=== PATIENT | male | born 1985 | race Hispanic/Latino ===

== ENCOUNTER 2018-03-29 15:18 | Emergency (ER) | payer SELFPAY ==
--- NOTE | 2018-03-29 17:26 | ER ---
Nurse's Notes [facility] Name: Pepe Chen Age: 32 yrs Sex: Male : 1985 Arrival Date: 03/29/2018 Time: 15:22 Bed 10 Private MD: Diagnosis: Encounter for screening, unspecified Presentation: 03/29 15:51 Presenting complaint: Patient states: "my left wrist has been hurting for months". aa5 Denies known injury. Pt states "I had left wrist surgery years ago". Transition of care: patient was not received from another setting of care. Onset of symptoms was 2017. Risk Assessment: Do you want to hurt yourself or someone else? Patient reports no desire to harm self or others. Initial Sepsis Screen: Does the patient meet any 2 criteria? No. Patient's initial sepsis screen is negative. Does the patient have a suspected source of infection? No. Patient's initial sepsis screen is negative. Care prior to arrival: None. 15:51 Method Of Arrival: Ambulatory aa 15:51 Acuity: RIMA 4 aa5 Historical: - Allergies: 15:53 No Known Allergies; aa5 - PMHx: 15:53 None; aa5 - PSHx: 15:53 Appendectomy; L wrist; aa5 - Immunization history:: Adult Immunizations unknown. - Social history:: Smoking status: Patient uses tobacco products, 3 cigarettes a day . - Ebola Screening: : No symptoms or risks identified at this time. Screenin:25 Abuse screen: Denies threats or abuse. Denies injuries from another. Nutritional aj screening: No deficits noted. Tuberculosis screening: No symptoms or risk factors identified. Fall Risk None identified. Vital Signs: 15:53 BP 129 / 71; Pulse 102; Resp 18 S; Temp 97.8(TE); Pulse Ox 99% on R/A; Weight 70.31 kg aa5 (R); Height 5 ft. 4 in. (162.56 cm) (R); Pain 8/10; 15:53 Body Mass Index 26.61 (70.31 kg, 162.56 cm) aa5 ED Course: 15:22 Patient arrived in ED. mr 15:52 Triage completed. aa5 15:52 Arm band placed on. aa 17:11 Ranjit Morgan MD is Attending Physician. 17:25 Sondra Torres, RN is Primary Nurse. aj 17:25 Patient has correct armband on for positive identification. aj 17:25 No provider procedures requiring assistance completed. Patient did not have IV access aj during this emergency room visit. Administered Medications: No medications were administered Outcome: 17:25 Discharge ordered by . gs 17:25 Medical screen evaluation completed per provider. Patient declined treatment. aj 17:25 Condition: good 17:25 Following a medical screening exam, the patient was provided information regarding alternative care sites and resources available per registration personnel. 17:26 Patient left the ED. aj Signatures: Sondra Torres, RN RN Lizbeth LivingstonderJazmine lambert, RN RN aa5 Ranjit Morgan MD MD
--- NOTE | 2018-03-29 17:26 | EDPHYS ---
Physician Documentation [facility] Name: Pepe Chen Age: 32 yrs Sex: Male : 1985 Arrival Date: 03/29/2018 Time: 15:22 Bed 10 Private MD: ED Physician Ranjit Morgan HPI: 03/29 17:23 This 32 yrs old Male presents to ER via Ambulatory with complaints of Wrist gs Pain. 17:23 The patient or guardian reports pain. The complaints affect the left wrist diffusely. gs Onset: The symptoms/episode began/occurred 4 month(s) ago. Modifying factors: The symptoms are alleviated by nothing, the symptoms are aggravated by movement. Associated signs and symptoms: Pertinent negatives: cyanosis distally, decreased sensation distally, fever, numbness distally. Compartment Syndrome negative for numbness, tingling. The patient has experienced similar episodes in the past, several times. The patient has not recently seen a physician. Historical: - Allergies: 15:53 No Known Allergies; aa5 - PMHx: 15:53 None; aa5 - PSHx: 15:53 Appendectomy; L wrist; aa5 - Immunization history:: Adult Immunizations unknown. - Social history:: Smoking status: Patient uses tobacco products, 3 cigarettes a day . - Ebola Screening: : No symptoms or risks identified at this time. ROS: 17:23 All other systems are negative. gs Exam: 17:23 Head/Face: Normocephalic, atraumatic. Cardiovascular: Regular rate and rhythm with a gs normal S1 and S2. No gallops, murmurs, or rubs. Normal PMI, no JVD. No pulse deficits. Respiratory: Lungs have equal breath sounds bilaterally, clear to auscultation and percussion. No rales, rhonchi or wheezes noted. No increased work of breathing, no retractions or nasal flaring. Abdomen/GI: Soft, non-tender, with normal bowel sounds. No distension or tympany. No guarding or rebound. No evidence of tenderness throughout. Skin: Warm, dry with normal turgor. Normal color with no rashes, no lesions, and no evidence of cellulitis. Neuro: Awake and alert, GCS 15, oriented to person, place, time, and situation. Cranial nerves II-XII grossly intact. Motor strength 5/5 in all extremities. Sensory grossly intact. Cerebellar exam normal. Normal gait. 17:23 Musculoskeletal/extremity: Circulation is intact in all extremities. Pulses: are normal with no appreciated deficits, Sensation intact. Compartment Syndrome exam of affected extremity: is normal. Joints: the left wrist displays tenderness, no swelling or warmth. Vital Signs: 15:53 BP 129 / 71; Pulse 102; Resp 18 S; Temp 97.8(TE); Pulse Ox 99% on R/A; Weight 70.31 kg aa5 (R); Height 5 ft. 4 in. (162.56 cm) (R); Pain 8/10; 15:53 Body Mass Index 26.61 (70.31 kg, 162.56 cm) aa5 MDM: 17:17 Patient medically screened. 17:23 Differential diagnosis: tendonitis. Data reviewed: vital signs, nurses notes. gs Administered Medications: No medications were administered Disposition: 03/29/18 17:25 Discharged to Home. Impression: Encounter for screening, unspecified. - Condition is Stable. - Medication Reconciliation Form, Thank You Letter, Antibiotic Education, Prescription Opioid Use form. - Follow up: Private Physician; When: 2 - 3 days; Reason: Re-evaluation by your physician. Signatures: Sondra Torres RN RN Jazmine Taveras RN RN aa5 Ranjit Morgan MD MD Corrections: (The following items were deleted from the chart) 17:26 17:25 03/29/2018 17:25 Discharged to Home. Impression: Encounter for screening, aj unspecified. Condition is Stable. Forms are Medication Reconciliation Form, Thank You Letter, Antibiotic Education, Prescription Opioid Use. Follow up: Private Physician; When: 2 - 3 days; Reason: Re-evaluation by your physician. gs
== END 2018-03-29 17:26 | disposition home or self-care (01) ==
LOC: ER 15:18
DX: M25.532 Pain in left wrist (principal); Z13.9 Encounter for screening, unspecified; F17.210 Nicotine dependence, cigarettes, uncomplicated; F17.220 Nicotine dependence, chewing tobacco, uncomplicated
CPT/HCPCS: 99281

== ENCOUNTER 2020-12-09 10:23 | Emergency (ER) | payer SELFPAY ==
--- OUTSIDE RECORDS SUMMARY | 2020-12-09 10:26 | XMS REPORT | Continuity of Care Document ---
:1985 Author Organization [facility] t Address [address] [place] [address] Care Team Providers Name Role Phone ROB Attending Clinician Unavailable Problems Condition Condition Condition Status Onset Resolution Last Treating Co mments Source Name Details Category Date Date Treatment Clinician Date History of History of Problem Resolve [facility] staphyloco staphyloco d [facility] y [facility]cal [facility] [place] infection infection Phys ici ans History of History of Problem Resolve [facility] back pain back pain d [facility] [place] [facility] ans Allergies, Adverse Reactions, Alerts This patient has no known allergies or adverse reactions. Family History Family Member Diagnosis Comments Start Date Stop Date Source Unknown Family Family history of Family History [facility] Member diabetes mellitus [place] P hysicians Unknown Family Family history of Family History [facility] Member Heart trouble [place] Phys[facility] cians Unknown Family Family history of Family History [facility] hypertension [place] [facility] ians Medications Ordered Filled Start Stop Current Ordering Indication Dosage Frequency Signature Comments Components Source Medication Medication Date Date Medication? Clinician (SIG) Name Name Tylenol Tylenol Yes [facility] TABS TABS [facility] [place] [facility] Naproxen Naproxen Yes [facility] TABS TABS [facility] [place] [facility] Procedures Procedure Date / Time Performing Clinician Source Performed History of Cyst [facility] [place] excision Physicians History of [place] [facility] extraction Physicians History of Appendectomy [facility] [place] [facility] Encounters Start End Encounter Admission Attending Care Care Encounter Source Date/Time Date/Time Type Type Clinicians Facility Department ID 2020-09-20 2020-09-20 [facility] [id number] Univers 15:00:00 15:00:00 raúl DUTTA M.D. at [facility] Sarah RIVAS Medicine Physici M.D. [place] - ans [place] Results Test Description Test Time Test Comments Results Result Sourc e Comments [U] XRAY HAND MIN 2020-09-20 Images [facility] of 3 VWS RIGHT [id number] 15:05:00 acquired, not Daysi s reported on Physicians this accession number.
--- NOTE | 2020-12-09 11:09 | ER ---
Nurse's Notes [facility] Name: Pepe Chen Age: 35 yrs Sex: Male : 1985 Arrival Date: 12/09/2020 Time: 10:24 Bed Waiting Private MD: Diagnosis: Presentation: 12/09 10:31 Chief complaint: Pt's reports confusion, fever, cough that began Thursday. 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 Pt also reports SOB and feeling lightheaded. Pt currently A\\T\\O x 4. Coronavirus screen: cough unrelated to allergies, shortness of breath. Ebola Screen: Patient negative for fever greater than or equal to 101.5 degrees Fahrenheit, and additional compatible Ebola Virus Disease symptoms. Initial Sepsis Screen: Does the patient meet any 2 criteria? No. Patient's initial sepsis screen is negative. Does the patient have a suspected source of infection? No. Patient's initial sepsis screen is negative. Risk Assessment: Do you want to hurt yourself or someone else? Patient reports no desire to harm self or others. Onset of symptoms was 2020. 10:31 Acuity: RIMA 3 aa5 10:31 Method Of Arrival: Ambulatory aa5 Historical: - Allergies: 10:33 No Known Allergies; aa5 - Home Meds: 10:33 None [Active]; aa5 - PMHx: 10:33 None; aa5 - PSHx: 10:33 Appendectomy; L wrist; aa5 - Immunization history:: Adult Immunizations unknown. - Social history:: Smoking status: Patient reports the use of cigarette tobacco products, 2 cigarettes a day . Assessment: 11:07 Reassessment: Pt's states "he is still having chest pain". Informed pt and pt's aa5 that ER is full and charge nurse has been notified of complaints and need for next room available. Pt and notified that approximate wait time is 20 minutes, pt and states they do not want to wait any longer and are leaving. Encouraged to stay and wait a few minutes and pt and declined. . Vital Signs: 10:31 BP 139 / 88; Pulse 105; Resp 18 S; Temp 98.9(O); Pulse Ox 100% on R/A; Weight 74.84 kg aa5 (R); Height 5 ft. 4 in. (162.56 cm) (R); 10:31 Body Mass Index 28.32 (74.84 kg, 162.56 cm) aa5 ED Course: 10:24 Patient arrived in ED. rg4 10:31 Arm band placed on. aa5 10:32 Triage completed. aa5 10:37 EKG completed in triage. Results shown to MD. hb 11:08 Dave Shook MD is Attending Physician. aa5 Administered Medications: No medications were administered Outcome: 11:08 Patient left the ED. aa5 11:08 Eloped from waiting room. aa5 Signatures: Jazmine Barton, RN RN aa5 Staci Powers, RN RN Deborah Beal rg4
[2020-12-09 11:12] VITALS: BP 139/88; TEMP 98.9; O2SAT 100
== END 2020-12-09 11:08 | disposition left against medical advice (07) ==
LOC: ER 10:23
DX: Z53.21 Procedure and treatment not carried out due to patient leaving prior to being seen by health care provider (principal)
CPT/HCPCS: 93005; 99281

== ENCOUNTER 2021-05-03 23:27 | Emergency (ER) | payer SELFPAY ==
--- NOTE | 2021-05-04 00:27 | ER ---
Nurse's Notes [facility] Name: Pepe Chen Age: 35 yrs Sex: Male : 1985 Arrival Date: 05/03/2021 Time: 23:28 Bed 6 Private MD: Diagnosis: Pain in right shoulder Presentation: 05/03 23:33 Chief complaint: Patient states: Right shoulder pain that started about 45 minutes ago. dc2 Coronavirus screen: Vaccine status: Patient reports being unvaccinated. Client denies travel out of the [place] in the last 14 days. Ebola Screen: Patient negative for fever greater than or equal to 101.5 degrees Fahrenheit, and additional compatible Ebola Virus Disease symptoms Patient denies exposure to infectious person. Patient denies travel to an Ebola-affected area in the 21 days before illness onset. No symptoms or risks identified at this time. Initial Sepsis Screen: Does the patient meet any 2 criteria? No. Patient's initial sepsis screen is negative. Does the patient have a suspected source of infection? No. Patient's initial sepsis screen is negative. Risk Assessment: Do you want to hurt yourself or someone else? Patient reports no desire to harm self or others. Onset of symptoms was May 03, 2021 at 22:45. Care prior to arrival: Ice pack to right shoulder. Activity prior to arrival: Resisting arrest. 23:33 Method Of Arrival: EMS: [facility] dc2 23:33 Acuity: RIMA 4 dc2 23:33 Note Presents in handcuffs with [employer]. dc2 Triage Assessment: 23:33 General: Appears in no apparent distress. uncomfortable, obese, well groomed, Behavior dc2 is calm, cooperative. 23:33 Pain: Complains of pain in Right shoulder Pain does not radiate. Pain currently is 9 dc2 out of 10 on a pain scale. Quality of pain is described as throbbing, Pain began suddenly, 1 hour ago. Aggravated by repositioning. Neuro: No deficits noted. Respiratory: No deficits noted. Derm: No deficits noted. No signs and/or symptoms reported regarding the dermatologic system. Musculoskeletal: Capillary refill < 3 seconds, is brisk, fingers. Range of motion: limited in Right shoulder, right arm due to pain Reports pain in Right shoulder. Injury Description: Crush injury sustained to Right shoulder hit concrete while being arrested. Historical: - Allergies: 23:35 No Known Allergies; dc2 - Home Meds: 23:35 None [Active]; dc2 - PMHx: 23:35 None; dc2 - Immunization history:: Adult Immunizations up to date, Client reports having NOT received the Covid vaccine. Last tetanus immunization: unknown. - Social history:: Smoking status: Patient reports the use of cigarette tobacco products, smokes one pack cigarettes per day. Screenin:35 Abuse screen:. Nutritional screening: No deficits noted. Tuberculosis screening: No dc2 symptoms or risk factors identified. Never had TB. Fall Risk None identified. No fall in past 12 months (0 pts). No secondary diagnosis (0 pts). No IV (0 pts). Ambulatory Aid- None/Bed Rest/Nurse Assist (0 pts). Gait- Normal/Bed Rest/Wheelchair (0 pts) Mental Status- Oriented to own ability (0 pts). Total Miller Fall Scale indicates No Risk (0-24 pts). Assessment: 05/04 00:35 General: Appears uncomfortable, Behavior is calm, cooperative. Pain: Complains of pain df1 in right trapezius and right scapular area Pain does not radiate. Neuro: No deficits noted. Cardiovascular: No deficits noted. Respiratory: No deficits noted. GI: No deficits noted. : No deficits noted. EENT: No deficits noted. Derm: No deficits noted. Musculoskeletal: Capillary refill < 3 seconds, Range of motion: limited in right shoulder Reports pain in right trapezius and right scapular area. Vital Signs: 05/03 23:29 BP 157 / 92; Pulse 122; Temp 98.2(O); dh4 05/04 00:34 BP 141 / 90; Pulse 99; Resp 18; Pulse Ox 99% on R/A; Pain 8/10; df1 ED Course: 05/03 23:28 Patient arrived in ED. kb 23:28 [facility]tazar [facility]C [facility] kb 23:29 Ankur Magallanes MD is Attending Physician. kb 23:33 Yvonne Saldana RN is Primary Nurse. dc2 23:33 Arm band placed on right wrist. dc2 23:35 Triage completed. dc2 23:35 Patient has correct armband on for positive identification. Bed in low position. Call dc2 light in reach. Side rails up X 1. Pulse ox on. NIBP on. [place] police with patient. 23:43 X-ray(s) taken. dc2 23:49 Shoulder Right (2 View) XRAY In Process Unspecified. EDVA 05/04 00:34 No provider procedures requiring assistance completed. Patient did not have IV access df1 during this emergency room visit. Administered Medications: 00:33 Drug: Ibuprofen 600 mg Route: PO; df1 Outcome: 00:26 Discharge ordered by MD. kirk 00:37 Discharged to Law Enforcement df1 00:37 Condition: good 00:37 Discharge instructions given to patient, police, Instructed on discharge instructions, follow up and referral plans. 00:37 Patient left the ED. df1 Signatures: Dispatcher [employer] EDVA Julissa Baltazar, RAGINI BARRERAP-Shalom Ac 4 Barbara Coleman df1 Yvonne Saldana RN RN dc2 Corrections: (The following items were deleted from the chart) 05/03 23:37 23:35 PSHx: Unable to Obtain; dc2 dc2 23:37 23:35 PSHx: Stented artery; dc2 dc2
--- NOTE | 2021-05-04 00:27 | EDPHYS ---
Physician Documentation [facility] Name: Pepe Chen Age: 35 yrs Sex: Male : 1985 Arrival Date: 05/03/2021 Time: 23:28 Bed 6 Private MD: ED Physician Ankur Magallanes HPI: 05/04 00:41 This 35 yrs old Male presents to ER via EMS with complaints of shoulder pain. kb 00:41 The patient or guardian complains of pain, that is acute, tenderness. right shoulder. kb Context: The problem was sustained outdoors, resulted from getting arrested and having arms put behind back, The patient experiences decreased range of motion, The patient reports no obvious deformity. Onset: The symptoms/episode began/occurred today. Modifying factors: the symptoms are alleviated by nothing. The symptoms are aggravated by movement. Associated signs and symptoms: The patient has no apparent associated signs or symptoms. Severity of symptoms: At their worst the symptoms were moderate, in the emergency department the symptoms are unchanged. Treatment prior to arrival includes: no previous treatment. The patient has not experienced similar symptoms in the past. The patient has not recently seen a physician. Historical: - Allergies: 05/03 23:35 No Known Allergies; dc2 - Home Meds: 23:35 None [Active]; dc2 - PMHx: 23:35 None; dc2 - Immunization history:: Adult Immunizations up to date, Client reports having NOT received the Covid vaccine. Last tetanus immunization: unknown. - Social history:: Smoking status: Patient reports the use of cigarette tobacco products, smokes one pack cigarettes per day. ROS: 05/04 00:40 Constitutional: Negative for fever, chills, and weight loss. kb MS/extremity: Positive for decreased range of motion, pain, tenderness, of the right shoulder. All other systems are negative. Exam: 00:40 Constitutional: This is a well developed, well nourished patient who is awake, alert, kb and in no acute distress. Head/Face: Normocephalic, atraumatic. ENT: Moist Mucous membranes Respiratory: Respirations even and unlabored. No increased work of breathing, no retractions or nasal flaring. Skin: Warm, dry with normal turgor. Normal color. Neuro: Awake and alert, GCS 15, oriented to person, place, time, and situation. Moves all extremities. Normal gait. Psych: Awake, alert, with orientation to person, place and time. Behavior, mood, and affect are within normal limits. 00:40 Musculoskeletal/extremity: Extremities: grossly normal except: noted in the right shoulder: decreased ROM, pain, tenderness, ROM: limited active range of motion, in the right shoulder, limited active range of motion due to pain, in the right shoulder, Circulation is intact in all extremities. Sensation intact. Vital Signs: 05/03 23:29 BP 157 / 92; Pulse 122; Temp 98.2(O); dh4 05/04 00:34 BP 141 / 90; Pulse 99; Resp 18; Pulse Ox 99% on R/A; Pain 8/10; df1 MDM: 05/03 23:29 Patient medically screened. kb 05/04 00:41 Data reviewed: vital signs, nurses notes. Data interpreted: Pulse oximetry: on room air kb is 99 %. Interpretation: normal. Counseling: I had a detailed discussion with the patient and/or guardian regarding: the historical points, exam findings, and any diagnostic results supporting the discharge/admit diagnosis, radiology results, the need for outpatient follow up, a orthopedic surgeon, to return to the emergency department if symptoms worsen or persist or if there are any questions or concerns that arise at home. 05/03 23:29 Order name: Shoulder Right (2 View) XRAY kb Administered Medications: 00:33 Drug: Ibuprofen 600 mg Route: PO; df1 Disposition: 04:45 Co-signature as Attending Physician, Ankur Magallanes MD. [email or web address] Disposition Summary: 05/04/21 00:26 Discharge Ordered Condition: Stable kb Location: [employer] Enforcement(05/04/21 00:26) kb Diagnosis - Pain in right shoulder kb Followup: kb - With: Emergency Department - When: As needed - Reason: Worsening of condition Followup: kb - With: Private Physician - When: 2 - 3 days - Reason: Recheck today's complaints, Continuance of care, Re-evaluation by your physician Discharge Instructions: - Discharge Summary Sheet kb - Shoulder Pain, [id number] kb Forms: - Medication Reconciliation Form kb - Thank You Letter kb - Antibiotic Education kb - Prescription Opioid Use kb Signatures: Dispatcher [employer] EDJulissa Joy FNP-Yadi ACEVES-Ckb Ankur Magallanes MD MD mh7 Barbara Coleman df1 Yvonne Saldana RN RN dc2 Corrections: (The following items were deleted from the chart) 05/03 23:37 23:35 PSHx: Unable to Obtain; dc2 dc2 23 23:35 PSHx: Stented artery; dc2 dc2 05/04 00:26 00:26 Home kb kb
[2021-05-04] MEDS ORDERED: IBUPROFEN 400 MG TAB ONE (00:55)
[2021-05-04] MEDS ORDERED: IBUPROFEN 200 MG TAB PO ONE (00:55)
[2021-05-04 00:56] VITALS: TEMP 98.2
[2021-05-04 00:57] VITALS: BP 141/90; O2SAT 99
--- NOTE | 2021-05-04 10:46 | RAD REPORT ---
EXAM DESCRIPTION: RAD - Shoulder Right 2 View - 05/03/2021 11:48 pm CLINICAL HISTORY: Right shoulder pain FINDINGS: No fracture or dislocation is seen.
== END 2021-05-04 00:37 ==
LOC: ER 23:27
DX: M25.511 Pain in right shoulder (principal); F17.210 Nicotine dependence, cigarettes, uncomplicated
CPT/HCPCS: 99284

== ENCOUNTER 2024-05-07 15:25 | Emergency (ER) | payer SELFPAY ==
--- OUTSIDE RECORDS SUMMARY | 2024-05-07 15:28 | XMS REPORT | Continuity of Care Document ---
Author Name Unknown Address [address] [facility] [address] [place] [address] [facility] thconnect Address [address] [facility] [address] [place] [address] Care Team Providers Care Barrel Waterer Name Role Phone Pcp, Patient Does Not Have A Primary Care Physic mili JOSE RAFAEL STOVER Attending Clinician Unavailable Jose Rafael Stover MD Attending Clinician [phone] HARLAN REA Attending Clinician Unavailable Harlan Rea DO Attending Clinician [phone] Ruma Juares Attending Clinician [phone] LUZMARIA RIVAS M.D. 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 Problem Resolve d [facility] No known active problems No known active problems Disease [facility] Allergies, Adverse Reactions, Alerts Allergy Name Allergy Type Status Severity Reaction(s) Onset Date Inactive Date Treating Clinician Comments Source Diphenhy dramine Hcl Propensi ty to adverse reaction s Active Other - See comments 02-20 00:00: 00 [facility] DIPHENHY DRAMINE HCL DRUG INGREDI Active Other-Cmnt 02-20 00:00: 00 [facility] NO KNOWN ALLERGIE S Drug Class Active [facility] Family History Family Member Diagnosis Comments Start Date Stop Date Sourc e Unknown Family Member Family history of diabetes mellitus Family History [facility] Unknown Family Member Family history of Heart trouble Family History [facility] Unknown Family Member Family history of hypertension Family History [facility] Social History Social Habit Start Date Stop Date Quantity Comments Source Gender identity [facility] Sexual [facility] Exposure to SARS-CoV-2 (event) Not sure [facility] Sex Assigned At Male [facility] Smoking Status Start Date Stop Date Source Tobacco smoking consumption unknown [facility] Medications Ordered Medication Name Filled Medication Name Start Date Stop Date Current Medication? Ordering Clinician Indication Dosage Frequency Signature (SIG) Comments Components Source methylpredn isolone sod succ (SOLU-MEDRO L) injection 125 mg 02-21 03:00: 00 02-21 02:02 :00 No 125mg 125 mg, Slow IV Push, ONCE NOW, 1 dose, On Thu02/20/23 at 2200, JASMEET [facility] famotidine (PEPCID (PF)) injection 20 mg 02-21 02:00: 00 02-21 02:02 :00 No 20mg 20 mg, Slow IV Push, ONCE, 1 dose, On Thu02/20/23 at 2100, JASMEET [facility] methylPREDN ISolone 4 mg tablets 02-20 00:00: 00 Yes [id number] Take by mouth SEE-INSTRU CTIONS. follow package directions [facility] EPINEPHrine (EPIPEN) 0.3 mg/0.3 mL injection 02-20 00:00: 00 02-21 04:59 :00 No [id number] .3mg 0.3 mL by Intramuscu lar route once now for 1 dose. [facility] methylPREDN ISolone (MEDROL, MÓNICA,) 4 mg tablets 10-30 00:00: 00 02-20 00:00 :00 No [id number] Take by mouth SEE-INSTRU CTIONS. follow package directions [facility] gabapentin 100 mg capsule 10-30 00:00: 00 11-15 04:59 :00 No [id number] 200mg Take 2 capsules by mouth 3 (three) times daily for 15 days. 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 (ECOTRIN) tablet 325 mg 12-09 18:30: 00 12-09 17:57 :00 No 325mg 325 mg, Oral, ONCE, 1 dose, 12/09/20 at 1330, STAT [facility] NaCl 0.9% (NS) bolus infusion 1,000 mL 12-09 17:00: 00 12-09 19:27 :00 No 1000mL at 999 mL/hr, 1,000 mL, IV Infusion, ONCE, 1 dose, 12/09/20 at 1200, JASMEET [facility] traMADoL 50 mg tablet 12-09 00:00: 00 Yes [id number] 50mg Take 1 tablet by mouth every 6 (six) hours as needed for Pain (scale 7-10). Indication s: acute pain [facility] ibuprofen 600 mg tablet 12-09 00:00: 00 Yes [id number] 600mg Take 1 tablet by mouth every 6 (six) hours as needed for Pain (scale 4-6). [facility] Tylenol TABS Tylenol TABS Yes [facility] Naproxen TABS Naproxen TABS Yes [facility] Vital Signs Vital Name Observation Time Observation Value Comments S ource Systolic blood pressure 2023-02-21 04:00:00 118 mm[Hg] [facility] Diastolic blood pressure 2023-02-21 04:00:00 72 mm[Hg] [facility] Heart rate 2023-02-21 04:00:00 85 /min [facility] Respiratory rate 2023-02-21 04:00:00 18 /min [facility] Oxygen saturation in Arterial blood by Pulse oximetry 2023-02-21 04:00:00 100 /min [facility] Body weight 2023-02-21 01:48:00 74.844 kg [facility] BMI 2023-02-21 01:48:00 28.32 kg/m2 [facility] Body temperature 2023-02-21 01:48:00 37.5 Lary [facility] Body height 2023-02-21 01:48:00 162.6 cm [facility] Systolic blood pressure 2021-10-30 17:34:00 138 mm[Hg] [facility] Diastolic blood pressure 2021-10-30 17:34:00 88 mm[Hg] [facility] Heart rate 2021-10-30 17:34:00 76 /min [facility] Body temperature 2021-10-30 17:34:00 36.67 Lary [facility] Respiratory rate 2021-10-30 17:34:00 18 /min [facility] Body weight 2021-10-30 17:34:00 74.844 kg [facility] BMI 2021-10-30 17:34:00 28.32 kg/m2 [facility] Oxygen saturation in Arterial blood by Pulse oximetry 2021-10-30 17:34:00 99 /min [facility] Heart rate 2020-12-09 20:30:00 78 /min [facility] temperature 2020-12-09 20:30:00 35.89 Lary [facility] Respiratory rate 2020-12-09 20:30:00 17 /min [facility] Oxygen saturation in Arterial blood by Pulse oximetry 2020-12-09 20:30:00 99 /min [facility] Systolic blood pressure 2020-12-09 20:00:00 106 mm[Hg] [facility] Diastolic blood pressure 2020-12-09 20:00:00 68 mm[Hg] [facility] Body height 2020-12-09 16:47:00 162.6 cm [facility] Body weight 2020-12-09 16:47:00 74.844 kg [facility] BMI 2020-12-09 16:47:00 28.32 kg/m2 [facility] Procedures Procedure Date / Time Performed Performing Clinician Source NOTICE OF PRIVACY PRACTICES 2023-02-21 01:48:02 Doctor Unassigned, [place] [facility] CONSENT/REFUSAL FOR DIAGNOSIS AND TREATMENT 2023-02-21 01:47:00 Doctor Unassigned, [place] [facility] CONSENT/REFUSAL FOR DIAGNOSIS AND TREATMENT 2021-10-30 17:28:32 Doctor Unassigned, [place] [facility] TROPONIN I 2020-12-09 20:28:00 Ruma Johnson [facility] URINALYSIS 2020-12-09 19:27:00 Ruma Johnson [facility] XR CHEST 1 VW 2020-12-09 17:45:58 Ruma Johnson [facility] TROPONIN I 2020-12-09 17:08:00 Ruma Johnson [facility] HEPATIC FUNCTION PANEL (27035) (ALB,T.PRO,BILI T,BU/BC,ALT,AST,ALK PHOS) 2020-12-09 17:08:00 Ruma Johnson [facility] BASIC METABOLIC PANEL (NA, K, CL, CO2, GLUCOSE, BUN, CREATININE, CA) 2020-12-09 17:08:00 Ruma Johnson [facility] CBC WITH DIFF 2020-12-09 17:08:00 Ruma Johnson [facility] D-DIMER 2020-12-09 17:08:00 Ruma Johnson [facility] N-TERMINAL PRO-BNP 2020-12-09 17:08:00 Brittany Johnson [facility] COVID-19 (ID NOW RAPID TESTING) 2020-12-09 17:08:00 Ruma Johnson [facility] History of Cyst excision [facility] History of Tooth extraction [facility]endectomy [facility] Encounters Start Date/Time End Date/Time Encounter Type Admission Type Attending [facility] Care Facility Care Department Encounter ID Source 2023-02-20 20:52:00 2023-02-20 23:38:00 Emergency X JOSE RAFAEL STOVER [facility] ERT [id number] [facility] 2023-02-20 20:52:00 2023-02-20 23:38:00 Emergency Jose Rafael Stover [facility] [id number] [facility] 2021-10-30 12:36:00 2021-10-30 14:06:00 Emergency X HARLAN REA [facility] ERT [id number] [facility] 2021-10-30 12:36:2021-10-30 14:06:00 Emergency Harlan Rea [facility] [id number] [facility] 2020-12-09 11:48:00 2020-12-09 16:46:00 Emergency Ruma Johnson [facility] [id number] [facility] 2020-12-09 11:38:00 2020-12-09 11:38:00 Emergency X [facility] ERT [id number] [facility] 2020-09-20 15:00:00 2020-09-20 15:00:00 Minerva duong; LUZMARIA RIVAS M.D. KONOPKA, GEOFF, M.D. [facility] Orthopedics at [facility] [id number] [facility] 2015-10-31 00:00:00 2015-10-31 00:00:00 Outpatient [facility] [id number] [facility] 2015-10-31 00:00:00 2015-10-31 00:00:00 Outpatient [facility], PROVIDER [facility] [id number] [facility] Results Test Description Test Time Test Comments Results Result Co mments Source [facility] 19:59:36* Test Item Value Reference Range Interpretation Comme nts APPEARANCE (test code = 1749344296) Clear Clear COLOR (test code = 5649431352) Yellow Yellow PH (test code = 0042058774) 4.8-8.0 A SP GRAVITY (test code = 7807220093) 1.003-1.030 GLU U QUAL (test code = 7748872446) Normal Normal BLOOD (test code = 3981512244) Negative Negative KETONES (test code = 2044240144) Negative Negative PROTEIN (test code = 2887-8) Negative Negative UROBILIN (test code = 2582727600) 2.0 mg/dL Normal A BILIRUBIN (test code = 3136844239) Negative Negative NITRITE (test code = 1136272728) Negative Negative LEUK ARELIS (test code = 8534020746) Negative Negative RBC/HPF (test code = 3048354855) See_Comment [Automated [employer]] The system which generated this result transmitted reference range: 0 - 3 HPF. The reference range was not used to interpret this result as normal/abnormal. WBC/HPF (test code = 3095827065) See_Comment [Automated [employer]] The system which generated this result transmitted reference range: 0 - 5 HPF. The reference range was not used to interpret this result as normal/abnormal. BACTERIA (test code = 0856370197) Negative Negative Lab Interpretation (test code = 56943-7) Abnormal [facility] [id number] 18:36:18* Test Item Value Reference Range Interpretation Comme nts NT-proBNP (test code = 9844774646) 22 pg/mL See_Comment [Automated message] The system which generated this result transmitted reference range: <=125. The reference range was not used to interpret this result as normal/abnormal. JAYDON (test code = JAYDON) Biotin has been reported to cause a negative bias, interpret results relative to patient's use of biotin. Lab Interpretation (test code = 56452-2) Normal [facility] 1 [id number] 18:27:42No radiographic evidence of an acute cardiopulmonary process. RL: [id number]: [id number] EXAM: XR CHEST 1 VW ORDERING PROVIDER: RUMA JOHNSON HISTORY: cough with fever COMPARISON: none TECHNIQUE: Portable AP radiograph of the chest. FINDINGS: Overlying monitoring leads. There is no focal consolidation,pneumothorax or appreciable pleural effusion. The cardiomediastinalsilhouette is within normal limits. Trachea is midline. No acute osseousabnormality identified. [facility], Radiant Results Inft User - 12/09/2020 1:28 PM CDT EXAM: XR CHEST 1 VWORDERING PROVIDER: RUMA GLASSUNLEHISTORY: cough with fever COMPARISON: none TECHNIQUE: Portable AP radiograph of the chest.FINDINGS: Overlying monitoring leads. There is no focal consolidation,pneumothorax or appreciable pleural effusion.The cardiomediastinalsilhouette is within normal limits. Trachea is midline. No acute osseousabnormality identified.IMPRESSIONNo radiographic evidence of an acute cardiopulmonary process.RL: [id number] signed by Simeon Sandoval DO at 12/09/2020 1:27 [facility] 2020-12-09 18:02:56* Test Item Value Reference Range Interpretation Comme nts TROPONIN I (test code = 9338859600) 0.000 ng/mL See_Comment [Automated message] The system which generated this result transmitted reference range: <=0.034. The reference range was not used to interpret this result as normal/abnormal. JAYDON (test code = JAYDON) Equal or Less than 0.034 ng/ml---Normal ?Note: Cardiac troponin begins to rise 3-4 hours after the onset of ischemia. Repeat in 4-6 hours if the sample was drawn within 3-4 hours of the onset of the symptom and found normal. Between 0.035 and 0.120 ng/mL--- Borderline. Questionable myocardial injury or necrosis ? ?Note: Serial measurement may be necessary to confirm or exclude the diagnosis of myocardial injury or necrosis; Clinical correlation (symptoms, EKGs, imaging studies, and others) required; Repeat in 4-6 hours if clinically indicated. ? Equal or Higher than 0.121 ng/mL---Abnormal. Myocardial Injury or Necrosis Likely ? Biotin has been reported to cause a negative bias, interpret results relative to patient's use of biotin. ? Lab Interpretation (test code = 48419-8) [facility] (ID NOW RAPID TESTING)2020-12-09 18:01:19* Test Item Value Reference Range Interpretation Comme nts SARS-CoV-2 Rapid ID NOW (test code = 02521-7) Not Detected Not Detected JAYDON (test code = JAYDON) ID NOW COVID-19 As say is an isothermal nucleic acid amplification test intended for the qualitative detection of nucleic acid from SARS-CoV-2 viral RNA in nasopharyngeal (FABRICATION MACHINE OPERATOR) specimens. It is used under Emergency Use Authorization (EUA) by FDA. The limit of detection (LOD) of the assay is 125 Genome Equivalents/mL. A positive result is indicative of the presence of SARS-CoV-2 RNA. ?Clinical correlation with patient history and other diagnostic information is necessary to determine patient infection status. A negative (Not Detected) result does not preclude SARS-CoV-2 infection. In patients with clinical symptoms and other tests that are consistent with SARS-CoV-2 infection, negative results should be treated as presumptive negative and a new specimen should be tested with alternative PCR molecular test. Invalid: Please collect a new specimen for repeat patient testing if clinically indicated. Lab Interpretation (test code = 98461-0) Normal [facility] Metabolic Panel (NA, K, CL, CO2, GLUCOSE, BUN, CREATININE, CA)2020-12-09 17:52:15* Test Item Value Reference Range Interpretation Comme nts NA (test code = 5385566876) 137 mmol/L 135-145 K (test code = 4945754652) 3.8 mmol/L 3.5-5.0 CL (test code = 9514257105) 103 mmol/L 98-108 CO2 TOTAL (test code = 0584394710) 24 mmol/L 23-31 AGAP (test code = 9004738076) 2-16 BUN (test code = 9429614122) 13 mg/dL 7-23 GLUCOSE (test code = 3786835894) 97 mg/dL 70-110 CREATININE (test code = 5288797501) 0.85 mg/dL 0.60-1.25 CALCIUM (test code = 1995668986) 9.5 mg/dL 8.6-10.6 eGFR (test code = 1862756454) mL/min/1.73m2 JAYDON (test code = JAYDON) Association of Glomerular Filtration Rate (GFR) and Staging of Kidney Disease* + + +- +| GFR (mL/min/1.73 m2) ?| With Kidney Damage ?| ?Without Kidney Damage+ ------+ ----+ ------+| ?>90 ?| ?Stage one ?| ? Normal ?+ -+ + -+| ?60-89 ?| ?Stage two ?| ? Decreased GFR ? + + +- +| ?30-59 ?| ?Stage three ?| ? Stage three ? + + +- +| ?15-29 ?| ?Stage four ? | ? Stage four ?+ -+ + -+| ?<15 (or dialysis) ? ?| ?Stage five ? | ? Stage five ?+ -+ + -+ *Each stage assumes the associated GFR level has been in effect for at least three months. ?Stages 1 to 5, with or without kidney disease, indicate chronic kidney disease. Notes: Determination of stages one and two (with eGFR >59mL/min/1.73 m2) requires estimation of kidney damage for at least three months as defined by structural or functional abnormalities of the kidney, manifested by either:Pathological abnormalities or Markers of kidney damage (including abnormalities in the composition of the blood or urine or abnormalities in imaging tests). [facility] (ALB, T.PRO, BILI T, BU/BC, ALT, AST, ALK PHOS)2020-12-09 17:51:35* Test Item Value Reference Range Interpretation Comme nts TOTAL BILI (test code = 8725334505) 0.6 mg/dL 0.1-1.1 BILI UNCON (test code = 1212247360) 0.5 mg/dL 0.1-1.1 BILI CONJ (test code = 0527844338) 0.0 mg/dL 0.0-0.3 T PROTEIN (test code = 7672223743) 8.2 g/dL 6.3-8.2 ALBUMIN (test code = 7303408967) 4.5 g/dL 3.5-5.0 ALK PHOS (test code = 2693735731) 98 U/L 34-122 ALTv (test code = 1742-6) 61 U/L 5-50 H AST(SGOT) (test code = 0349880478) 40 U/L 13-40 Lab Interpretation (test cod e = 55811-7) Abnormal [id number] 17:50:14* Test Item Value Reference Range Interpretation Comments D-DIMER (test code = 9898261323) See_Comment [Automated message] The system which generated this result transmitted reference range: <0.41 ?g/mL (FEU). The reference range was not used to interpret this result as normal/abnormal. JAYDON (test code = JAYDON) This test may be used in conjunction with a clinical pretest probability (PTP) assessment model to exclude venous thromboembolism (VTE) in patients suspected of deep venous thrombosis (DVT) and pulmonary embolism (PE) A D-Dimer value less than 0.50 ?g/ml (FEU) has a negative predicative value of 96 to 100% (95% CI)and 97 to 100% (95% CI) as an aid in the diagnosis of deep vein thrombosis (DVT) and pulmonary embolism when there is low or moderate pretest probability of PE or DVT. D-Dimer values are expressed in initial fibrinogen equivalent units (FEU)" The assay results should be used with other information, including the clinical context, in forming a diagnosis. Lab Interpretation (test code = 36373-8) Normal [facility] with [id number] 17:38:57* Test Item Value Reference Range Interpretation Comme nts WBC (test code = 6690-2) See_Comment [Automated [employer]] The system which generated this result transmitted reference range: 4.20 - 10.70 10*3/?L. The reference range was not used to interpret this result as normal/abnormal. RBC (test code = 789-8) See_Comment [Automated [employer]] The system which generated this result transmitted reference range: 4.26 - 5.52 10*6/?L. The reference range was not used to interpret this result as normal/abnormal. HGB (test code = 718-7) 14.0 g/dL 12.2-16.4 HCT (test code = 4544-3) 41.3 % 38.4-49.3 MCV (test code = 787-2) 85.5 fL 81.7-95.6 MCH (test code = 785-6) 29.0 pg 26.1-32.7 MCHC (test code = 786-4) 33.9 g/dL 31.2-35.0 RDW-SD (test code = 00253-2) 41.1 fL 38.5-51.6 RDW-CV (test code = 788-0) 13.2 % 12.1-15.4 PLT (test code = 777-3) See_Comment [Automated messa ge] The system which generated this result transmitted reference range: 150 - 328 10*3/?L. The reference range was not used to interpret this result as normal/abnormal. MPV (test code = 68188-8) 8.6 fL 9.8-13.0 L NRBC/100 WBC (test code = 8318205171) See_Comment [Automated [employer]] The system which generated this result transmitted reference range: 0.0 - 10.0 /100 WBCs. The reference range was not used to interpret this result as normal/abnormal. NRBC x10^3 (test code = 4398583951) <0.01 See_Comment [Automated messa ge] The system which generated this result transmitted reference range: 10*3/?L. The reference range was not used to interpret this result as normal/abnormal. GRAN MAT (NEUT) % (test code = 770-8) 63.2 % IMM GRAN % (test code = 1858520738) 0.30 % LYMPH % (test code = 736-9) 23.4 % MONO % (test code = 5905-5) 12.1 % EOS % (test code = 713-8) 0.7 % BASO % (test code = 706-2) 0.3 % GRAN MAT x10^3(ANC) (test code = 4741646878) 4.74 10*3/uL 1.99-6.95 IMM GRAN x10^3 (test code = 4080434409) <0.03 0.00-0.06 LYMPH x10^3 (test code = 731-0) 1.75 10*3/uL 1.09-3.23 MONO x10^3 (test code = 742-7) 0.91 10*3/uL 0.36-1.02 EOS x10^3 (test code = 711-2) 0.05 10*3/uL 0.06-0.53 L BASO x10^3 (test code = 704-7) <0.03 0.01-0.09 Lab Interpretation (test code = 43525-0) Abnormal [facility][U] XRAY HAND MIN 3 VWS RIGHT [id number] 15:05:00Images acquired, not reported on this accession number.[facility] Notes Date/Time Note Provider Source 2023-02-20 23:32:07 Formatting of this n ote might be different from the original. Pt discharged home . Given all education and information regarding prescriptions; s/s of worsening condition; and follow up importance. Patient verbalized understanding. Vss. Alert and ambulatory to pov with spouse Rosa Yan RN [facility] 2023-02-20 20:48:00 Formatting of this n ote might be different from the original. Patient states: "I was bitten by ant fires on my left foot around 7:30PM tonight and right away rash started all over my body, no SOB but I just feel that my throat is scratchy. I took Vanita 10 minutes after the rashes showed but no relief." iane [facility]
[2024-05-07] MEDS ORDERED: KETOROLAC 10 MG TAB ONE (16:14)
[2024-05-07] MEDS ORDERED: IBUPROFEN 400 MG TAB ONE (16:14)
[2024-05-07] MEDS ORDERED: ONDANSETRON 4 MG (ODT) TAB ONE (16:14)
[2024-05-07] MEDS ORDERED: ACETAMINOPHEN 500 MG TAB ONE (16:14)
[2024-05-07 16:37] LABS: SARS-CoV-2 Antigen CONTROL BLUE LINE VIS/BG OK; SARS-CoV-2 Antigen Rapid Res Negative (Negative)
--- NOTE | 2024-05-07 16:50 | EDPHYS ---
Physician Documentation [facility] Name: Pepe Chen Age: 38 yrs Sex: Male : 1985 Arrival Date: 05/07/2024 Time: 15:25 Bed DIS1 Private MD: ED Physician Damián Matute HPI: 05/07 17:21 This 38 yrs old Male presents to ER via Ambulatory with complaints of Fever. snw 17:21 The patient reports fever, that was measured at 103.6 degrees Fahrenheit. Onset: The snw symptoms/episode began/occurred acutely, suddenly. Modifying factors: there are no obvious modifying factors. Associated signs and symptoms: Pertinent positives: cough, myalgias, fatigue. Severity of symptoms: At their worst the symptoms were moderate severe. The patient has not experienced similar symptoms in the past. The patient has not recently seen a physician. ill appearing. Historical: - Allergies: 15:43 Benadryl; bm7 - PMHx: 15:43 cardiomegaly; bm7 - PSHx: 15:43 Appendectomy; bm7 - Immunization history:: Adult Immunizations not up to date, Client reports having NOT received the Covid vaccine. Flu vaccine is not up to date. It has been more than one year since last vaccine. - Infectious Disease History:: Denies. CDIFF, . - Social history:: Smoking status: unknown. ROS: 17:20 Eyes: Negative for injury, pain, redness, and discharge, ENT: Negative for injury, snw pain, and discharge, Neck: Negative for injury, pain, and swelling, Cardiovascular: Negative for chest pain, palpitations, and edema, 17:20 Back: Negative for injury and pain, : Negative for injury, bleeding, discharge, and swelling, MS/Extremity: Negative for injury and deformity, Skin: Negative for injury, rash, and discoloration, Neuro: Negative for headache, weakness, numbness, tingling, and seizure, Psych: Negative for depression, anxiety, suicide ideation, homicidal ideation, and hallucinations, 17:20 Constitutional: Positive for body aches, chills, fever, malaise, poor PO intake, 17:20 Respiratory: Positive for cough, 17:20 Abdomen/GI: Positive for nausea, Exam: 17:19 Head/Face: Normocephalic, atraumatic. Eyes: Pupils equal round and reactive to light, snw extra-ocular motions intact. Lids and lashes normal. Conjunctiva and sclera are non-icteric and not injected. Cornea within normal limits. Periorbital areas with no swelling, redness, or edema. ENT: Nares patent. No nasal discharge, no septal abnormalities noted. Tympanic membranes are normal and external auditory canals are clear. Oropharynx with no redness, swelling, or masses, exudates, or evidence of obstruction, uvula midline. Mucous membranes moist. Neck: Trachea midline, no thyromegaly or masses palpated, and no cervical lymphadenopathy. Supple, full range of motion without nuchal rigidity, or vertebral point tenderness. No Meningismus. Chest/axilla: Normal chest wall appearance and motion. Nontender with no deformity. No lesions are appreciated. 17:19 Abdomen/GI: Soft, non-tender, with normal bowel sounds. No distension or tympany. No guarding or rebound. No evidence of tenderness throughout. Back: No spinal tenderness. No costovertebral tenderness. Full range of motion. 17:19 Respiratory: Lungs have equal breath sounds bilaterally, clear to auscultation and percussion. No rales, rhonchi or wheezes noted. No increased work of breathing, no retractions or nasal flaring. Skin: Warm, dry with normal turgor. Normal color with no rashes, no lesions, and no evidence of cellulitis. MS/ Extremity: Pulses equal, no cyanosis. Neurovascular intact. Full, normal range of motion. Neuro: Awake and alert, GCS 15, oriented to person, place, time, and situation. Cranial nerves II-XII grossly intact. Motor strength 5/5 in all extremities. Sensory grossly intact. Cerebellar exam normal. Normal gait. Psych: Awake, alert, with orientation to person, place and time. Behavior, mood, and affect are within normal limits. 17:19 Constitutional: The patient appears alert, febrile, lethargic, listless, obviously ill, 17:19 Cardiovascular: Rate: tachycardic, Heart sounds: normal, Vital Signs: 15:40 BP 143 / 88 Sitting; Pulse 129; Resp 20; Temp 103.2(O); Pulse Ox 99% on R/A; Weight bm7 74.84 kg (R); Height 5 ft. 4 in. ; Pain 5/10; 17:13 BP 118 / 72; Pulse 124; Resp 22; Temp 102.2; Pulse Ox 99% ; me1 15:40 Body Mass Index 28.32 (74.84 kg, 162.56 cm) bm7 15:40 Pain Scale: Adult bm7 MDM: 15:37 Medical Screening Exam initiated snw 17:18 Differential diagnosis: viral Infection, bacterial infection, URI, bronchitis, snw pneumonia. Data reviewed: vital signs, nurses notes, lab test result(s). I considered the following discharge prescriptions or medication management in the emergency department Medications were administered in the Emergency Department. See MAR. Counseling: I had a detailed discussion with the patient and/or guardian regarding the historical points, exam findings, and any diagnostic results supporting the discharge/admit diagnosis, lab results, the need for outpatient follow up, for definitive care, to return to the emergency department if symptoms worsen or persist or if there are any questions or concerns that arise at home. Response to treatment: the patient's symptoms have mildly improved after treatment. Special discussion: Based on the history and exam findings, there is no indication for further emergent testing or inpatient evaluation. I discussed with the patient/guardian the need to see the primary care provider for further evaluation of the symptoms. 05/07 15:51 Order name: Flu; Complete Time: 16:47 05/07 15:51 Order name: SARS RAPID; Complete Time: 16:47 05/07 15:51 Order name: Strep 05/07 16:34 Order name: Throat Culture EDMS Administered Medications: 16:22 Drug: Ibuprofen PO 800 mg PO once Route: PO; me1 16:58 Follow up: Response: No adverse reaction; Temperature is decreased; Pain is decreased me1 16:22 Drug: Ondansetron PO 4 mg PO once Route: PO; me1 16:58 Follow up: Response: No adverse reaction; Nausea is decreased me1 16:22 Drug: Ketorolac PO 10 mg PO once Route: PO; me1 16:58 Follow up: Response: No adverse reaction; Pain is decreased me1 16:22 Drug: Acetaminophen PO 1000 mg PO once Route: PO; me1 16:57 Follow up: Response: No adverse reaction; Temperature is decreased; Pain is decreased me1 Disposition Summary: 05/07/24 16:49 Discharge Ordered Notes: Location: Home snw Condition: Stable snw Diagnosis - Influenza due to identified novel influenza A virus snw Followup: snw - With: Emergency Department - When: As needed - Reason: Worsening of condition Followup: snw - With: Private Physician - When: 1 week - Reason: Recheck today's complaints, Continuance of care, Re-evaluation by your physician Discharge Instructions: - Discharge Summary Sheet snw - Fever, Adult snw - Influenza, Adult snw - Rehydration, Adult snw Forms: - Work release form snw - Medication Reconciliation Form snw - Antibiotic Education snw - Prescription Opioid Use snw - Patient Portal Instructions snw - Leadership Thank You Letter snw Prescriptions: - Zofran 4 mg Oral Tablet - take 1 tablet ORAL route every 12 hours As needed; 20 tablet; Refills: 0, snw Product Selection Permitted - Tessalon Perles 100 mg Oral Capsule - take 1 capsule ORAL route every 8 hours As needed; 15 capsule; Refills: 0, snw Product Selection Permitted - Tramadol 50 mg Oral Tablet - take 1 tablet ORAL route every 8 hours as needed; 12 tablet; Refills: 0, snw Product Selection Permitted - Pepcid 20 mg Oral Tablet - take 1 tablet ORAL route once daily; 20 tablet; Refills: 0, Product Selection snw Permitted Signatures: Dispatcher [employer] Honey Villa FNP-C HOME CARE ASSOCIATE-Csnw Paige Olmos, RN RN bm7 Rhea Marrufo RN RN me1
--- NOTE | 2024-05-07 16:50 | ER ---
Nurse's Notes [facility] Name: Pepe Chen Age: 38 yrs Sex: Male : 1985 Arrival Date: 05/07/2024 Time: 15:25 Bed DIS1 Private MD: Diagnosis: Influenza due to identified novel influenza A virus Presentation: 05/07 15:40 Chief complaint: Patient states: I have been having a cough, sore throat, runny nose, bm7 and high fever since last night. Coronavirus screen: Client presents with at least one sign or symptom that may indicate coronavirus-19. Ebola Screen: Patient negative for fever greater than or equal to 101.5 degrees Fahrenheit, and additional compatible Ebola Virus Disease symptoms Patient denies exposure to infectious person. Patient denies travel to an Ebola-affected area in the 21 days before illness onset. No symptoms or risks identified at this time. Initial Sepsis Screen: Does the patient meet any 2 criteria? RR > 20 per min. Temp <36.0*C (96.8*F)) or > 38.3*C (100.9*F). HR > 90 bpm. Does the patient have a suspected source of infection? No. Patient's initial sepsis screen is negative. Risk Assessment: Do you want to hurt yourself or someone else? Patient reports no desire to harm self or others. Onset of symptoms was April 05, 2024. Care prior to arrival: Medication(s) given: Tylenol, \T\ 0600. 15:40 Method Of Arrival: Ambulatory 7 15:40 Acuity: RIMA 4 bm7 Triage Assessment: 15:43 General: Appears in no apparent distress. uncomfortable, well groomed, well developed, bm7 Behavior is calm, cooperative, appropriate for age. Pain: Complains of pain in throat Pain does not radiate. Pain currently is 5 out of 10 on a pain scale. EENT: Sclera/Cornea are reddened in outer aspect of conjuctiva of right eye, iris of right eye, inner aspect of conjuctiva of right eye, outer aspect of conjuctiva of left eye, iris of left eye and inner aspect of conjunctiva of left eye Nares are clear with drainage noted Good dentition noted. Throat is reddened with gag reflex present, Reports difficulty swallowing nasal congestion nasal discharge that is yellow. Neuro: No deficits noted. Cardiovascular: No deficits noted. Respiratory: Reports cough that is productive, Airway is patent Respiratory effort is even, unlabored, Respiratory pattern is regular, symmetrical. GI: No deficits noted. No signs and/or symptoms were reported involving the gastrointestinal system. : No deficits noted. No signs and/or symptoms were reported regarding the genitourinary system. Derm: No deficits noted. No signs and/or symptoms reported regarding the dermatologic system. Musculoskeletal: No deficits noted. No signs and/or symptoms reported regarding the musculoskeletal system. Historical: - Allergies: 15:43 Benadryl; bm7 - PMHx: 15:43 cardiomegaly; bm7 - PSHx: 15:43 Appendectomy; bm7 - Immunization history:: Adult Immunizations not up to date, Client reports having NOT received the Covid vaccine. Flu vaccine is not up to date. It has been more than one year since last vaccine. - Infectious Disease History:: Denies. CDIFF, . - Social history:: Smoking status: unknown. Screenin:02 [facility] ED Fall Risk Assessment (Adult) History of falling in the last 3 months, me1 including since admission No falls in past 3 months (0 pts) Confusion or Disorientation No (0 pts) Intoxicated or Sedated No (0 pts) Impaired Gait No (0 pts) Mobility Assist Device Used No (0 pt) Altered Elimination No (0 pt) Score/Fall Risk Level 0 - 2 = Low Risk Maintained a safe environment, Provided non-skid footwear, Hourly rounding (assess needs \T\ fall precautionary measures) done. Abuse screen: Denies threats or abuse. Nutritional screening: No deficits noted. Tuberculosis screening: No symptoms or risk factors identified. Assessment: 16:02 General: Appears uncomfortable, ill, well groomed, well developed, well nourished, me1 Behavior is calm, cooperative, appropriate for age, Reports I have been having a cough, sore throat, runny nose, and high fever since last night. Pain: Complains of pain in inner aspect of conjunctiva of left eye and iris of left eye and outer aspect of conjuctiva of left eye and inner aspect of conjuctiva of right eye and iris of right eye and outer aspect of conjuctiva of right eye Pain does not radiate. Pain currently is 3 out of 10 on a pain scale. Quality of pain is described as burning, Pain began gradually, Is continuous. Neuro: Level of Consciousness is awake, alert, obeys commands, Oriented to person, place, time, situation, Appropriate for age. Cardiovascular: Patient's skin is warm and dry. Respiratory: Reports cough that is persistent Airway is patent Respiratory effort is even, unlabored, Respiratory pattern is regular, symmetrical. GI: No signs and/or symptoms were reported involving the gastrointestinal system. : No signs and/or symptoms were reported regarding the genitourinary system. EENT: Reports nasal congestion pain in throat when swallowing. Derm: Skin is intact, is healthy with good turgor, Skin is pale, Skin temperature is hot. Musculoskeletal: No signs and/or symptoms reported regarding the musculoskeletal system. Vital Signs: 15:40 BP 143 / 88 Sitting; Pulse 129; Resp 20; Temp 103.2(O); Pulse Ox 99% on R/A; Weight bm7 74.84 kg (R); Height 5 ft. 4 in. ; Pain 5/10; 17:13 BP 118 / 72; Pulse 124; Resp 22; Temp 102.2; Pulse Ox 99% ; me1 15:40 Body Mass Index 28.32 (74.84 kg, 162.56 cm) bm7 15:40 Pain Scale: Adult bm7 ED Course: 15:31 Patient arrived in ED. ra3 15:37 Honey Landrum [facility]C [facility] snw 15:37 Damián Matute MD is Attending Physician. snw 15:43 Triage completed. bm7 15:43 Arm band placed on right wrist. bm7 15:45 Rhea Marrufo, TATO is Primary Nurse. me1 15:47 No apparent distress. Resting quietly. Awaiting lab results. bm7 15:47 COVID swab sent to lab. Flu and/or RSV swab sent to lab. Strep swab sent to lab. bm7 16:02 Patient has correct armband on for positive identification. Bed in low position. Call me1 light in reach. Side rails up X2. Provided Education on: POC. Verbalized understanding. . 16:02 No provider procedures requiring assistance completed. Patient did not have IV access me1 during this emergency room visit. Administered Medications: 16:22 Drug: Ibuprofen PO 800 mg PO once Route: PO; me1 16:58 Follow up: Response: No adverse reaction; Temperature is decreased; Pain is decreased me1 16:22 Drug: Ondansetron PO 4 mg PO once Route: PO; me1 16:58 Follow up: Response: No adverse reaction; Nausea is decreased me1 16:22 Drug: Ketorolac PO 10 mg PO once Route: PO; me1 16:58 Follow up: Response: No adverse reaction; Pain is decreased me1 16:22 Drug: Acetaminophen PO 1000 mg PO once Route: PO; me1 16:57 Follow up: Response: No adverse reaction; Temperature is decreased; Pain is decreased me1 Medication: 16:02 VIS not applicable for this client. me1 Outcome: 16:49 Discharge ordered by . snw 17:13 Discharged to home ambulatory, with significant other, me1 17:13 Condition: stable 17:13 Discharge instructions given to patient, significant other, Instructed on discharge instructions, follow up and referral plans. medication usage, Demonstrated understanding of instructions, follow-up care, medications, Prescriptions given X 4, 17:14 Patient left the ED. me1 Signatures: Honey aLndrum, PLANT OPERATOR CONTROL ROOM OPERATOR-C PLANT OPERATOR CONTROL ROOM OPERATOR-Csnw Paige Olmos, RN RN bm7 Rhea Marrufo RN RN me1 Page Archibald ra3 Corrections: (The following items were deleted from the chart) 16:02 15:40 Chief complaint: Patient states: I have been having a cough, sore throat, runny me1 nose, and high fever since last night. bm7
[2024-05-07 17:20] VITALS: O2SAT 99
[2024-05-07 17:21] VITALS: BP 118/72; TEMP 102.2
== END 2024-05-07 17:14 | disposition home or self-care (01) ==
LOC: ER 15:25
DX: J10.1 Influenza due to other identified influenza virus with other respiratory manifestations (principal); Z11.52 Encounter for screening for COVID-19
CPT/HCPCS: 36415; 87070; 87081; 87804; 87811; 99284; Q0162

== ENCOUNTER 2024-10-19 19:56 | Emergency (ER) | payer SELFPAY ==
--- OUTSIDE RECORDS SUMMARY | 2024-10-19 20:00 | XMS REPORT | Continuity of Care Document ---
Author Name Unknown Address [address] [place] [address] [facility] Address [address] 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 [facility] No known active problems No known active problems Disease [facility] History of back pain History of back pain Problem [facility] Allergies, Adverse Reactions, Alerts Allergy Name Allergy Type Status Severity Reaction(s) Onset Date Inactive Date Treating Clinician Comments Source Diphenhy dramine Hcl Propensi ty to adverse reaction s Active Other - See comments 02-20 00:00: 00 [facility] DIPHENHY DRAMINE HCL DRUG INGREDI Active Other-Cmnt 02-20 00:00: 00 [facility] NO KNOWN ALLERGIE S Drug Class Active [facility] Family History Family Member Diagnosis Comments Start Date Stop Date Sourc e Unknown Family Member Family history of diabetes mellitus Family History [facility] Unknown Family Member Family history of Heart trouble Family History [facility] Unknown Family Member Family history of hypertension Family History [facility] Social History Social Habit Start Date Stop Date Quantity Comments Source Gender identity [facility] Exposure to SARS-CoV-2 (event) Not sure [facility] Sex Assigned At Male [facility] Smoking Status Start Date Stop Date Source Tobacco smoking consumption unknown [facility] Medications Ordered Medication Name Filled Medication Name Start Date Stop Date Current Medication? Ordering Clinician Indication Dosage Frequency Signature (SIG) Comments Components Source methylpredn isolone sod succ (SOLU-MEDRO L) injection 125 mg 02-21 03:00: 00 02-21 02:02 :00 No 125mg 125 mg, Slow IV Push, ONCE NOW, 1 dose, On Thu02/20/23 at 2200, JASMEET [facility] famotidine (PEPCID (PF)) injection 20 mg 02-21 02:00: 00 02-21 02:02 :00 No 20mg 20 mg, Slow IV Push, ONCE, 1 dose, [facility] Thu02/20/23 [facility] 2100[facility]one [facility] mg tablets 02-20 00:00: 00 Yes [id number] Take by mouth SEE-INSTRU CTIONS. follow package directions [facility] EPINEPHrine (EPIPEN) 0.3 mg/0.3 mL injection 02-20 00:00: 00 02-21 04:59 :00 No [id number] .3mg 0.3 mL by Intramuscu lar route once now for 1 dose. [facility] methylPREDN ISolone (MEDROL, MÓNICA,) 4 mg tablets 10-30 00:00: 00 02-20 00:00 :00 No [id number] Take by mouth SEE-INSTRU CTIONS. follow package directions [facility] gabapentin 100 mg capsule 10-30 00:00: 00 11-15 04:59 :00 No [id number] 200mg Take 2 capsules by mouth 3 (three) times daily for 15 days. [facility] ketorolac (TORADOL) injection 30 mg 12-09 20:00: 00 12-09 19:25 :00 No 30mg 30 mg, Slow IV Push, ONCE, 1 dose, 12/09/20 at 1500, Routine
research assistant member approving Restricted medication : RUMA JOHNSON [facility] acetaminoph en (TYLENOL) tablet 650 mg 12-09 18:45: 00 12-09 17:57 :00 No 650mg 650 mg, Oral, ONCE, 1 dose, 12/09/20 at 1345, JASMEET [facility] ondansetron (ZOFRAN (PF)) injection 4 mg 12-09 18:30: 00 12-09 17:58 :00 No 4mg 4 mg, Slow IV Push, ONCE, 1 dose, 12/09/20 at 1330, [facility] morpHINE injection 4 mg 12-09 18:30: 00 12-09 17:57 :00 No 4mg 4 mg, Slow IV Push, ONCE, 1 dose, 12/09/20 at 1330, STAT [facility] aspirin E.C. (ECOTRIN) tablet 325 mg 12-09 18:30: 00 12-09 17:57 :00 No 325mg 325 mg, Oral, ONCE, 1 dose, 12/09/20 at 1330, STAT [facility] NaCl 0.9% (NS) bolus infusion 1,000 mL 12-09 17:00: 00 12-09 19:27 :00 No 1000mL at 999 mL/hr, 1,000 mL, IV Infusion, ONCE, 1 dose, 12/09/20 at 1200, JASMEET [facility] traMADoL 50 mg tablet 12-09 00:00: 00 Yes [id number] 50mg Take 1 tablet by mouth every 6 (six) hours as needed for Pain (scale 7-10). Indication s: acute pain [facility] ibuprofen 600 mg tablet 12-09 00:00: 00 Yes [id number] 600mg Take 1 tablet by mouth every 6 (six) hours as needed for Pain (scale 4-6). [facility] Tylenol TABS Tylenol TABS Yes [facility] Naproxen TABS Naproxen TABS Yes [facility] Vital Signs Vital Name Observation Time Observation Value Comments S ource Systolic blood pressure 2023-02-21 04:00:00 118 mm[Hg] [facility] Diastolic blood pressure 2023-02-21 04:00:00 72 mm[Hg] [facility] Heart rate 2023-02-21 04:00:00 85 /min [facility] Respiratory rate 2023-02-21 04:00:00 18 /min [facility] Oxygen saturation in Arterial blood by Pulse oximetry 2023-02-21 04:00:00 100 /min [facility] Body weight 2023-02-21 01:48:00 74.844 kg [facility] BMI 2023-02-21 01:48:00 28.32 kg/m2 [facility] Body temperature 2023-02-21 01:48:00 37.5 [facility] Body height 2023-02-21 01:48:00 162.6 cm [facility] Systolic blood pressure 2021-10-30 17:34:00 138 mm[Hg] [facility] Diastolic blood pressure 2021-10-30 17:34:00 88 mm[Hg] [facility] Heart rate 2021-10-30 17:34:00 76 /[facility] Body temperature 2021-10-30 17:34:00 36.67 [facility] Respiratory rate 2021-10-30 17:34:00 18 /min [facility] Body weight 2021-10-30 17:34:00 74.844 kg [facility] BMI 2021-10-30 17:34:00 28.32 kg/m2 [facility] Oxygen saturation in Arterial blood by Pulse oximetry 2021-10-30 17:34:00 99 /min [facility] Heart rate 2020-12-09 20:30:00 78 /min [facility] temperature 2020-12-09 20:30:00 35.89 [facility] Respiratory rate 2020-12-09 20:30:00 17 /min [facility] Oxygen saturation in Arterial blood by Pulse oximetry 2020-12-09 20:30:00 99 /min [facility] Systolic blood pressure 2020-12-09 20:00:00 106 mm[Hg] [facility] Diastolic blood pressure 2020-12-09 20:00:00 68 mm[Hg] [facility] Body height 2020-12-09 16:47:00 162.6 cm [facility] Body weight 2020-12-09 16:47:00 74.844 kg [facility] BMI 2020-12-09 16:47:00 28.32 kg/m2 [facility] Procedures Procedure Date / Time Performed Performing Clinician Source NOTICE OF PRIVACY PRACTICES 2023-02-21 01:48:02 Doctor Unassigned, [facility] CONSENT/REFUSAL FOR DIAGNOSIS AND TREATMENT 2023-02-21 01:47:00 Doctor Unassigned, [place] CONSENT/REFUSAL FOR DIAGNOSIS AND TREATMENT 2021-10-30 17:28:32 Doctor Unassigned, [place] [facility] TROPONIN I 2020-12-09 20:28:00 [facility] 2020-12-09 19:27:00 [facility] CHEST 1 VW 2020-12-09 17:45:58 Ruma Johnson [facility] TROPONIN I 2020-12-09 17:08:00 Ruma Johnson [facility] HEPATIC FUNCTION PANEL ([id number]) (ALB,T.PRO,BILI T,BU/BC,ALT,AST,ALK PHOS) 2020-12-09 17:08:00 Ruma Johnson [facility] BASIC METABOLIC PANEL (NA, K, CL, CO2, GLUCOSE, BUN, CREATININE, CA) 2020-12-09 17:08:00 Ruma Johnson [facility] CBC WITH DIFF 2020-12-09 17:08:00 Ruma Johnson [facility] D-DIMER 2020-12-09 17:08:00 Ruma Johnson [facility] N-TERMINAL PRO-BNP 2020-12-09 17:08:00 Brittany Johnson [facility] COVID-19 (ID NOW RAPID TESTING) 2020-12-09 17:08:00 Ruma Johnson [facility] History of Cyst excision [facility] History of Tooth extraction [facility]end[facility] Encounters Start Date/Time End Date/Time Encounter Type Admission Type Attending Clinicians Care Facility Care Department Encounter ID Source 2023-02-20 20:52:00 2023-02-20 23:38:00 Emergency X JOSE RAFAEL SALEEM [facility] ERT [id number] [facility] 2023-02-20 20:52:00 2023-02-20 23:38:00 Emergency Jose Rafael Saleem [facility] [id number] [facility] 2021-10-30 12:36:00 2021-10-30 14:06:00 Emergency HARLAN BLANCHARD [facility] ERT [id number] [facility] 2021-10-30 12:36:00 2021-10-30 14:06:00 Emergency Harlan Rea [facility] [id number] [facility] 2020-12-09 11:48:00 2020-12-09 16:46:00 Emergency Ruma Johnson [facility] [id number] [facility] 2020-12-09 11:38:00 2020-12-09 11:38:00 Emergency X [facility] ERT [id number] [facility] 2020-09-20 15:00:00 2020-09-20 15:00:00 LUZMARIA Rausch M.D. KONOPKA, GEOFF, M.D. [facility] Orthoped[facility] at [facility] [place] [id number] [facility] 2015-10-31 00:00:00 2015-10-31 00:00:00 Outpatient [facility] [id number] [facility] 2015-10-31 00:00:00 2015-10-31 00:00:00 Outpatient [facility] PROVID[facility] [id number] [facility] Results Test Description Test Time Test Comments Results Result Co mments Source [facility] 19:59:36* Test Item Value Reference Range Interpretation Comme nts APPEARANCE (test code = 8968455907) Clear Clear COLOR (test code = 5863048268) Yellow Yellow PH (test code = 9320126665) 4.8-8.0 A SP GRAVITY (test code = 9683260607) 1.003-1.030 GLU U QUAL (test code = 7552994174) Normal Normal BLOOD (test code = 5187508374) Negative Negative KETONES (test code = 0611558080) Negative Negative PROTEIN (test code = 2887-8) Negative Negative UROBILIN (test code = 5286614364) 2.0 mg/dL Normal A BILIRUBIN (test code = 0029135707) Negative Negative NITRITE (test code = 3453384980) Negative Negative LEUK ARELIS (test code = 5472489851) Negative Negative RBC/HPF (test code = 6987053529) See_Comment [Automated [employer] ge] The system which generated this result transmitted reference range: 0 - 3 HPF. The reference range was not used to interpret this result as normal/abnormal. WBC/HPF (test code = 7121489559) See_Comment [Automated [employer]] The system which generated this result transmitted reference range: 0 - 5 HPF. The reference range was not used to interpret this result as normal/abnormal. BACTERIA (test code = 2061201373) Negative Negative Lab Interpretation (test code = 29915-3) Abnormal [facility] [id number] 18:36:18* Test Item Value Reference Range Interpretation Comme nts NT-proBNP (test code = 1799565988) 22 pg/mL See_Comment [Automated message] The system which generated this result transmitted reference range: <=125. The reference range was not used to interpret this result as normal/abnormal. JAYDON (test code = JAYDON) Biotin has been reported to cause a negative bias, interpret results relative to patient's use of biotin. Lab Interpretation (test code = 04140-2) Normal [facility] 1 [id number] 18:27:42No radiographic evidence of an acute cardiopulmonary process. RL: [id number]: [id number] EXAM: XR CHEST 1 VW ORDERING PROVIDER: [...] radiographic evidence of an acute cardiopulmonary process.RL: [id number]:[id number] signed by Simeon Sandoval DO at 12/09/2020 1:27 PMUnThe [facility] I 2020-12-09 18:02:56* Test Item Value Reference Range Interpretation Comme nts TROPONIN I (test code = 5323167332) 0.000 ng/mL See_Comment [Automated message] The system [...] biotin. ? Lab Interpretation (test code = 84226-8) Normal [facility] (ID NOW RAPID TESTING)2020-12-09 18:01:19* Test Item Value Reference Range Interpretation Comme nts SARS-CoV-2 Rapid ID NOW (test code = 67958-5) Not Detected Not Detected JAYDON (test code = JAYDON) ID NOW COVID-19 As say is an isothermal nucleic acid amplification test intended for the qualitative detection of nucleic acid from SARS-CoV-2 viral RNA in nasopharyngeal (DOG BEAUTICIAN) specimens. It is used under Emergency Use [...] clinically indicated. Lab Interpretation (test code = 40292-8) Normal [facility] Metabolic Panel (NA, K, CL, CO2, GLUCOSE, BUN, CREATININE, CA)2020-12-09 17:52:15* Test Item Value Reference Range Interpretation Comme nts NA (test code = 4514044751) 137 mmol/L 135-145 K (test code = 4151595688) 3.8 mmol/L 3.5-5.0 CL (test code = 9580497056) 103 mmol/L 98-108 CO2 TOTAL (test code = 5641430139) 24 mmol/L 23-31 AGAP (test code = 4042735271) 2-16 BUN (test code = 0112327475) 13 mg/dL 7-23 GLUCOSE (test code = 2158299355) 97 mg/dL 70-110 CREATININE (test code = 0645628529) 0.85 mg/dL 0.60-1.25 CALCIUM (test code = 9974941499) 9.5 mg/dL 8.6-10.6 eGFR (test code = 4862205324) mL/min/1.73m2 JAYDON (test code = JAYDON) Association [...] or urine or abnormalities in imaging tests). [facility] (ALB, T.PRO, BILI T, BU/BC, ALT, AST, ALK PHOS)2020-12-09 17:51:35* Test Item Value Reference Range Interpretation Comme nts TOTAL BILI (test code = 0717647803) 0.6 mg/dL 0.1-1.1 BILI UNCON (test code = 7911561052) 0.5 mg/dL 0.1-1.1 BILI CONJ (test code = 3040016438) 0.0 mg/dL 0.0-0.3 T PROTEIN (test code = 5670416721) 8.2 g/dL 6.3-8.2 ALBUMIN (test code = 6087094668) 4.5 g/dL 3.5-5.0 ALK PHOS (test code = 6476734984) 98 U/L 34-122 ALTv (test code = 1742-6) 61 U/L 5-50 H AST(SGOT) (test code = 1770166304) 40 U/L 13-40 Lab Interpretation (test cod e = 24038-4) Abnormal [facility] CenterD-[id number] 17:50:14* Test Item Value Reference Range Interpretation Comments D-DIMER (test code = 6019021456) See_Comment [Automated message] The system which generated [...] a diagnosis. Lab Interpretation (test code = 26168-9) Normal [facility] with [id number] 17:38:57* Test Item Value Reference Range Interpretation Comme nts WBC (test code = 6690-2) See_Comment [Automated [employer]] The system which generated this result transmitted reference range: 4.20 - 10.70 10*3/?L. The reference range was not used to interpret this result as normal/abnormal. RBC (test code = 789-8) See_Comment [[employer]] The system which generated this result transmitted [...] 33.9 g/dL 31.2-35.0 RDW-SD (test code = 18404-1) 41.1 fL 38.5-51.6 RDW-CV (test code = 788-0) 13.2 % 12.1-15.4 PLT (test code = 777-3) See_Comment [Automated messa ge] The system which generated this result transmitted reference range: 150 - 328 10*3/?L. The reference range was not used to interpret this result as normal/abnormal. MPV (test code = 22448-7) 8.6 fL 9.8-13.0 L NRBC/100 WBC (test code = 1184009038) See_Comment [Automated [employer] ssage] The system which generated this result transmitted reference range: 0.0 - 10.0 /100 WBCs. The reference range was not used to interpret this result as normal/abnormal. NRBC x10^3 (test code = 2167471356) <0.01 See_Comment [Automated messa ge] The system which generated this result transmitted reference range: 10*3/?L. The reference range was not used to interpret this result as normal/abnormal. GRAN MAT (NEUT) % (test code = 770-8) 63.2 % IMM GRAN % (test code = 0328530867) 0.30 % LYMPH % (test code = 736-9) 23.4 % MONO % (test code = 5905-5) 12.1 % EOS % (test code = 713-8) 0.7 % BASO % (test code = 706-2) 0.3 % GRAN MAT x10^3(ANC) (test code = 3476891422) 4.74 10*3/uL 1.99-6.95 IMM GRAN x10^3 (test code = 0204007356) <0.03 0.00-0.06 LYMPH x10^3 (test code = 731-0) 1.75 10*3/uL 1.09-3.23 MONO x10^3 (test code = 742-7) 0.91 10*3/uL 0.36-1.02 EOS x10^3 (test code = 711-2) 0.05 10*3/uL 0.06-0.53 L BASO x10^3 (test code = 704-7) <0.03 0.01-0.09 Lab Interpretation (test code = 27812-4) Abnormal [facility][U] XRAY HAND MIN 3 VWS RIGHT [id number] 15:05:00Images acquired, not reported on this accession number.ID Physicians Notes Date/Time Note Provider Source 2023-02-20 23:32:07 Formatting of this n ote might be different from the original. Pt discharged home . Given all education and information regarding prescriptions; s/s of worsening condition; and follow up importance. Patient verbalized understanding. Vss. Alert and ambulatory to pov with spouse Rosa Yan RN [facility] 2023-02-20 20:48:00 Formatting of this n ote might be different from the original. Patient states: "I was bitten by ant fires on my left foot around 7:30PM tonight and right away rash started all over my body, no SOB but I just feel that my throat is scratchy. I took Vanita 10 minutes after the rashes showed but no relief." [facility]
[2024-10-19] MEDS ORDERED: NA CHLORIDE 0.9% 1,000 ML ONE (20:09)
[2024-10-19 20:42] LABS: Absolute Eosinophils 0.1 K/uL (0-0.5); Absolute Lymphocytes (CBC) 2.7 K/uL (0.7-4.9); Absolute Monocytes 0.7 K/uL (0.1-1.3); Absolute Neutrophil 5.8 K/uL (1.8-8.0); Basophils % 0.5 % (0-1.3); Eosinophils % 1.4 % (0-4.4); Hemoglobin 14.9 g/dL (13.6-17.9); Lymphocytes % 28.9 % (15.3-44.8); MCH 30.3 pg (27.0-35.0); MCHC 35.5 g/dL (32.0-36.0); MCV 85.2 fL (80-100); MPV 6.9 fL (7.6-11.3); Monocytes % 7.2 % (3.3-12.3); Nucleated Red Blood Cells % 0.1 % (0-0); Platelets 313 thou/uL (152-406); RBC Red Blood Cell Count 4.93 M/uL (4.33-5.43)
[2024-10-19 20:58] LABS: ALT/SGPT 56 U/L (16-61); AST/SGOT 22 U/L (15-37); Albumin 3.8 g/dL (3.4-5.0); Alkaline Phosphatase 102 U/L (45-117); Anion Gap 11.3 mEq/L (5.0-15.0); BUN Blood Urea Nitrogen 17 mg/dL (7-18); Bicarbonate 24 mEq/L (21-32); Bilirubin Total 0.3 mg/dL (0.2-1.0); Globulin 3.9 g/dL (2.3-3.5); Glomerular Filtration Rate 90 ml/min (=/>90); Glucose Level 161 mg/dL (74-106); Magnesium 1.9 mg/dL (1.6-2.4); NT PRO-BNP 10 pg/mL (<125); Potassium 3.3 mEq/L (3.5-5.1); Protein, Total 7.7 g/dL (6.4-8.2); Sodium Level 138 mEq/L (136-145); Troponin High Sensitivity 3.1 pg/mL (<58.9)
[2024-10-19 21:00] LABS: Bilirubin Direct < 0.2 mg/dL (0-0.2); Bilirubin Indirect, Calculated 0.1 mg/dL (0.2-0.8)
[2024-10-19 21:01] LABS: Influenza A Ag Negative; Influenza B Ag Negative; SARS-CoV-2 Antigen Rapid Res Negative (Negative)
[2024-10-19 21:02] LABS: PT Prothrombin Time 11.9 SECONDS (10-13.0); Protime INR 1.05
--- NOTE | 2024-10-19 21:10 | RAD REPORT ---
Procedure: Chest Single View HISTORY: Chest pain COMPARISON: 2022 FINDINGS: The lungs appear clear of acute infiltrate. No significant pleural effusion noted. The heart is normal size. IMPRESSION: No acute abnormality is displayed.
[2024-10-19 21:26] LABS: Barbiturates NEGATIVE (NEGATIVE); Benzodiazepines NEGATIVE (NEGATIVE); Cocaine NEGATIVE (NEGATIVE); METHAMPHETAM NEGATIVE (NEGATIVE); Methadone NEGATIVE (NEGATIVE); Opiates NEGATIVE (NEGATIVE); Phencyclidine NEGATIVE (NEGATIVE); THC Cannibis NEGATIVE (NEGATIVE)
--- NOTE | 2024-10-19 21:42 | ER ---
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 19:58 Coronavirus screen: Client denies travel out of the [place] in the last 14 days. Ebola rg5 Screen: Patient negative for fever greater than or equal to 101.5 degrees Fahrenheit, and additional compatible Ebola Virus Disease symptoms Patient denies exposure to infectious person. Patient denies travel to an Ebola-affected area in the 21 days before illness onset. Initial Sepsis Screen: Does the patient meet any 2 criteria? No. Patient's initial sepsis screen is negative. Does the patient have a suspected source of infection? No. Patient's initial sepsis screen is negative. Risk Assessment: Do you want to hurt yourself or someone else? Patient reports no desire to harm self or others. Onset of symptoms was October 19, 2024. 19:58 Method Of Arrival: EMS: [facility] rg5 19:58 Acuity: RIMA 3 rg5 19:58 Care prior to arrival: IV initiated. 20 GA, in the right antecubital area. rg5 Triage Assessment: 19:58 General: Appears in no apparent distress. comfortable, Behavior is calm, cooperative, rg5 appropriate for age. Pain: Denies pain. EENT: No deficits noted. Neuro: Level of Consciousness is awake, alert, obeys commands, Oriented to person, place, time, situation. Cardiovascular: Reports palpitations. Respiratory: Airway is patent Trachea midline Respiratory effort is even, unlabored, Respiratory pattern is regular, symmetrical. GI: Abdomen is round non-distended, Abd is soft and non tender. : No signs and/or symptoms were reported regarding the genitourinary system. Derm: No signs and/or symptoms reported regarding the dermatologic system. Musculoskeletal: Circulation, motion, and sensation intact. Range of motion: intact in all extremities. Historical: - Allergies: 19:58 Benadryl; rg5 - PMHx: 19:58 cardiomegaly; rg5 - PSHx: 19:58 Appendectomy; rg5 - Immunization history:: Adult Immunizations not up to date. - Infectious Disease History:: Denies. - Social history:: Smoking status: Patient reports the use of cigarette tobacco products, smokes one pack cigarettes per day. Screenin:58 [facility] ED Fall Risk Assessment (Adult) History of falling in the last 3 months, rg5 including since admission No falls in past 3 months (0 pts) Confusion or Disorientation No (0 pts) Intoxicated or Sedated No (0 pts) Impaired Gait No (0 pts) Mobility Assist Device Used No (0 pt) Altered Elimination No (0 pt) Score/Fall Risk Level 0 - 2 = Low Risk Oriented to surroundings, Maintained a safe environment, Hourly rounding (assess needs \T\ fall precautionary measures) done. Abuse screen: Denies threats or abuse. Nutritional screening: No deficits noted. Tuberculosis screening: No symptoms or risk factors identified. Assessment: 20:39 Reassessment: No changes from previously documented assessment. Patient and/or family rg5 updated on plan of care and expected duration. Pain level reassessed. Patient is alert, oriented x 3, equal unlabored respirations, skin warm/dry/pink. General: Appears in no apparent distress. comfortable. Cardiovascular: Reports palpitations. 21:38 Reassessment: No changes from previously documented assessment. Patient and/or family rg5 updated on plan of care and expected duration. Pain level reassessed. Patient is alert, oriented x 3, equal unlabored respirations, skin warm/dry/pink. 21:51 Reassessment: Patient and/or family updated on plan of care and expected duration. Pain rg5 level reassessed. Patient is alert, oriented x 3, equal unlabored respirations, skin warm/dry/pink. Patient states feeling better. Patient states symptoms have improved. Vital Signs: 19:58 BP 161 / 98; Pulse 113; Resp 18; Temp 98; Pulse Ox 100% on R/A; Weight 61.23 kg; Height rg5 5 ft. 4 in. ; Pain 0/10; 20:30 BP 141 / 94; Pulse 98; Resp 18; Pulse Ox 100% on R/A; Pain 0/10; rg5 21:30 BP 129 / 80; Pulse 91; Resp 17; Pulse Ox 100% on R/A; Pain 0/10; rg5 19:58 Body Mass Index 23.17 (61.23 kg, 162.56 cm) rg5 19:58 Pain Scale: Adult rg5 20:30 Pain Scale: Adult rg5 21:30 Pain Scale: Adult rg5 ED Course: 19:58 Patient arrived in ED. im 19:58 Tremaine Lewis, RN is Primary Nurse. rg5 19:58 Kitty Galvez PA-C is PHCP. sb4 19:58 Fer Zaragoza MD is Attending Physician. sb4 19:58 Arm band placed on left wrist. EKG completed in triage. Results shown to MD. rg5 19:58 Patient has correct armband on for positive identification. Bed in low position. Call rg5 light in reach. Side rails up X 1. Door closed. Noise minimized. Warm blanket given. 19:58 No provider procedures requiring assistance completed. Maintain EMS IV. Dressing rg5 intact. Good blood return noted. Site clean \T\ dry. Gauge \T\ site: 20g Right AC. Flushed with 10 mL NS. Patient maintains SpO2 saturation greater than 95% on room air. 20:33 Triage completed. rg5 20:55 XRAY Chest (1 view) In Process Unspecified. EDMS 21:41 Pasquale Pham MD is Referral Physician. sb4 21:51 Provided Education on: post er care. rg5 21:51 IV discontinued, bleeding controlled, No redness/swelling at site. Pressure dressing rg5 applied. Administered Medications: 20:20 Drug: NS 0.9% IV 1000 ml IV at 1 bolus Per protocol; to be given as a bolus over 60 rg5 minutes Route: IV; Rate: 1 bolus; Site: right antecubital; 21:42 Follow up: IV Status: Completed infusion; IV Intake: 1000ml rg5 21:35 Drug: Potassium PO Effervescent Tablet 25 mEq PO once; dissolve in 4 ounces of water or rg5 juice Route: PO; 21:51 Follow up: Response: No adverse reaction rg5 Medication: 20:39 VIS not applicable for this client. rg5 Intake: 21:42 IV: 1000ml; Total: 1000ml. rg5 Outcome: 21:42 Discharge ordered by . sb4 21:52 Discharged to home ambulatory, rg5 21:52 Condition: stable 21:52 Discharge instructions given to patient, family, Instructed on discharge instructions, follow up and referral plans. 21:57 Patient left the ED. rg5 Signatures: Dispatcher [employer] Kitty Fernandez PA-C PA-C sb4 Marilin Villalta Rommel, RN RN rg5
--- NOTE | 2024-10-19 21:42 | EDPHYS ---
Physician Documentation [facility] Name: Pepe Chen Age: 38 yrs Sex: Male : 1985 Arrival Date: 10/19/2024 Time: 19:56 Bed 15 Private MD: ED Physician Fer Zaragoza HPI: 10/19 20:06 This 38 yrs old Male presents to ER via Unassigned with complaints of sb4 Palpitations. 20:07 The patient presents with a history of heart racing. Context: The symptoms occur at sb4 rest. Onset: The symptoms/episode began/occurred just prior to arrival. Palpitations that began while at work. States that this has happened before. Feels like his chest is pounding which is breath. Has never officially been diagnosed with anything, has not seen cardiology, does not take any daily medications. States that he has been feeling sick the past few days with a cough and nausea. Historical: - Allergies: 19:58 Benadryl; rg5 - PMHx: 19:58 cardiomegaly; rg5 - PSHx: 19:58 Appendectomy; rg5 - Immunization history:: Adult Immunizations not up to date. - Infectious Disease History:: Denies. - Social history:: Smoking status: Patient reports the use of cigarette tobacco products, smokes one pack cigarettes per day. ROS: 20:07 Constitutional: Negative for fever, chills, and weight loss, sb4 20:07 Cardiovascular: Positive for chest pain, palpitations, 20:07 All other systems are negative, Exam: 20:07 Head/Face: Normocephalic, atraumatic. Eyes: Extra-ocular motions intact. Periorbital sb4 areas with no swelling, redness, or edema. ENT: Mucous membranes moist. Respiratory: No increased work of breathing, no retractions or nasal flaring. Abdomen/GI: Soft, non-tender, no distension. Skin: Warm, dry with normal turgor. Normal color with no rashes, no lesions, and no evidence of cellulitis. 20:07 Constitutional: The patient appears alert, awake, pale, uncomfortable, 20:07 Cardiovascular: Rate: tachycardic, Rhythm: regular, Vital Signs: 19:58 BP 161 / 98; Pulse 113; Resp 18; Temp 98; Pulse Ox 100% on R/A; Weight 61.23 kg; Height rg5 5 ft. 4 in. ; Pain 0/10; 20:30 BP 141 / 94; Pulse 98; Resp 18; Pulse Ox 100% on R/A; Pain 0/10; rg5 21:30 BP 129 / 80; Pulse 91; Resp 17; Pulse Ox 100% on R/A; Pain 0/10; rg5 19:58 Body Mass Index 23.17 (61.23 kg, 162.56 cm) rg5 19:58 Pain Scale: Adult rg5 20:30 Pain Scale: Adult rg5 21:30 Pain Scale: Adult rg5 MDM: 19:58 Medical Screening Exam initiated sb4 10/20 00:20 Data reviewed: vital signs, nurses notes, EMS record, lab test result(s), EKG, sb4 radiologic studies, and as a result, I will discharge patient. Historians other than the Patient: Spouse/Significant Other: . Counseling: I had a detailed discussion with the patient and/or guardian regarding the historical points, exam findings, and any diagnostic results supporting the discharge/admit diagnosis, lab results, radiology results, the need for outpatient follow up, a buffer nickel, to return to the emergency department if symptoms worsen or persist or if there are any questions or concerns that arise at home. 10/19 20:05 Order name: Basic Metabolic Panel; Complete Time: 21:[address] [facility] 10/19 20:05 Order name: CBC with Diff; Complete Time: 20:[address] [facility] 10/19 20:05 Order name: LFT's; Complete Time: 21:[address] [facility] 10/19 20:05 Order name: Magnesium; Complete Time: 21:[address] [facility] 10/19 20:05 Order name: NT PRO-BNP; Complete Time: 21:[address] [facility] 10/19 20:05 Order name: PT-INR; Complete Time: 21:[address] [facility] 10/19 20:05 Order name: Troponin HS; Complete Time: 21:[address] [facility] 10/19 20:05 Order name: UDS; Complete Time: 21:[address] [facility] 10/19 20:05 Order name: ETOH Level; Complete Time: 20:[address] [facility] 10/19 20:05 Order name: COVID-19 Ag + Flu A+B Ag; Complete Time: 21:[address] [facility] 10/19 20:05 Order name: XRAY Chest (1 view); Complete Time: 21:11 sb4 10/19 20:05 Order name: EKG; Complete Time: 20:06 sb4 10/19 20:05 Order name: Cardiac monitoring; Complete Time: 20:42 sb4 10/19 20:05 Order name: EKG - Nurse/Tech; Complete Time: 20:42 sb4 10/19 20:05 Order name: IV Saline Lock; Complete Time: 20:42 sb4 10/19 20:05 Order name: Labs collected and sent; Complete Time: 20:42 sb4 10/19 20:05 Order name: O2 Per Protocol; Complete Time: 20:42 sb4 10/19 20:05 Order name: O2 Sat Monitoring; Complete Time: 20:42 sb4 EC/16 20:15 Rate is 102 beats/min. Rhythm is regular, Sinus tachycardia. WI interval is normal at sb4 144 msec. QRS interval is normal at 100 msec. QT interval is normal at [address] changes noted. Clinical impression: Sinus tachycardia. Interpreted by me. Reviewed by me. Administered Medications: 20:20 Drug: NS 0.9% IV 1000 ml IV at 1 bolus Per protocol; to be given as a bolus over 60 rg5 minutes Route: IV; Rate: 1 bolus; Site: right antecubital; 21:42 Follow up: IV Status: Completed infusion; IV Intake: 1000ml rg5 21:35 Drug: Potassium PO Effervescent Tablet 25 mEq PO once; dissolve in 4 ounces of water or rg5 juice Route: PO; 21:51 Follow up: Response: No adverse reaction rg5 Disposition Summary: 10/19/24 21:42 Discharge Ordered Notes: Location: Home sb4 Problem: an acute exacerbation sb4 Symptoms: have improved sb4 Condition: Stable sb4 Diagnosis - Palpitations sb4 Followup: sb4 - With: Pasquale Pham MD - When: 1 week - Reason: Further diagnostic work-up, Recheck today's complaints, Re-evaluation by your physician Discharge Instructions: - Discharge Summary Sheet sb4 - Potassium Content of Foods sb4 - Palpitations sb4 Forms: - Patient Portal Instructions sb4 - Leadership Thank You Letter sb4 Signatures: Dispatcher [employer] Kitty Fernandez PA-C PA-C sb4 Lewis, Tremaine, RN RN rg5 Corrections: (The following items were deleted from the chart) 20:06 20:06 BASIC METABOLIC PANEL+C.LAB.BRZ ordered. EDMS EDMS 20:06 20:06 CBC+H.LAB.BRZ ordered. EDMS EDMS 20:06 20:06 HEPATIC FUNCTION+C.LAB.BRZ ordered. EDMS EDMS 20:06 20:06 MAGNESIUM+C.LAB.BRZ ordered. EDMS EDMS 20:06 20:06 PROBNP+C.LAB.BRZ ordered. EDMS EDMS 20:06 20:06 PROTIME (+INR)+COAG.LAB.BRZ ordered. EDMS EDMS 20:06 20:06 Troponin High Sensitivity+C.LAB.BRZ ordered. EDMS EDMS 20:06 20:06 URINE DRUG SCREEN+UC.LAB.BRZ ordered. EDMS EDMS 20:06 20:06 ETHANOL+C.LAB.BRZ ordered. EDMS EDMS 20:06 20:06 COVID-19 Ag + Flu A+B Ag+I.LAB.BRZ ordered. EDMS EDMS
[2024-10-19 22:55] VITALS: BP 129/80; TEMP 98; O2SAT 100
== END 2024-10-19 21:57 | disposition home or self-care (01) ==
LOC: ER 19:56
DX: R00.2 Palpitations (principal); R07.9 Chest pain, unspecified; F17.210 Nicotine dependence, cigarettes, uncomplicated; Z11.52 Encounter for screening for COVID-19
CPT/HCPCS: 36415; 71045; 80048; 80076; 80307; 82077; 83735; 83880; 84484; 85025; 85610; 87428; 93005; J7030

== ENCOUNTER 2025-03-01 12:54 | Emergency (ER) | payer SELFPAY ==
--- OUTSIDE RECORDS SUMMARY | 2025-03-01 12:57 | XMS REPORT | Continuity of Care Document ---
Author Name Unknown Address [address] [facility] [address] [place] [address] [facility] Address 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 Attending Clinician Unavail able [...] active problems No known active problems Disease [facility] Allergies, Adverse Reactions, Alerts Allergy Name Allergy Type Status Severity Reaction(s) Onset Date Inactive Date Treating Clinician Comments Source Diphenhy dramine Hcl Propensi ty to adverse reaction s Active Other - See comments 02-20 00:00: 00 [facility] DIPHENHY DRAMINE HCL DRUG INGREDI Active Other-Cmnt 02-20 00:00: 00 [facility] NO KNOWN ALLERGIE S Drug Class Active [facility] Family History Family Member Diagnosis Comments Start Date Stop Date Sourc e Unknown Family Member Family history of diabetes mellitus Family History [facility] Unknown Family Member Family history of Heart trouble Family History [facility] Unknown Family Member Family history of hypertension Family History [facility] Social History Social Habit Start Date Stop Date Quantity Comments Source Gender identity [facility] Exposure to SARS-CoV-2 (event) Not sure [facility] Sex Assigned At Male [facility] Smoking Status Start Date Stop Date Source Tobacco smoking consumption unknown [facility] Medications Ordered Medication Name Filled Medication Name Start Date Stop Date Current Medication? Ordering Clinician Indication Dosage Frequency Signature (SIG) Comments Components Source methylpredn isolone sod succ (SOLU-MEDRO L) injection 125 mg 02-21 03:00: 00 02-21 02:02 :00 No 125mg 125 mg, Slow IV Push, ONCE NOW, 1 dose, On Thu02/20/23 at 2200, JASMEET [facility] famotidine (PEPCID (PF)) injection 20 mg 02-21 02:00: 00 02-21 02:02 :00 No 20mg 20 mg, Slow IV Push, ONCE, 1 dose, On Thu02/20/23 at 2100, JASMEET [facility] methylPREDN ISolone 4 mg tablets 02-20 00:00: 00 Yes [id number] Take by mouth SEE-INSTRU CTIONS. follow package directions [facility] EPINEPHrine (EPIPEN) 0.3 mg/0.3 mL injection 02-20 00:00: 00 02-21 04:59 :00 No [id number] .3mg 0.3 mL by Intramuscu lar route once now for 1 dose. [facility] methylPREDN ISolone (MEDROL, MÓNICA,) 4 mg tablets 10-30 00:00: 00 02-20 00:00 :00 No [id number] Take by mouth SEE-INSTRU CTIONS. follow package directions [facility] gabapentin 100 mg capsule 10-30 00:00: 00 11-15 04:59 :00 No [id number] 200mg Take 2 capsules by mouth 3 (three) times daily for 15 days. [facility] ketorolac (TORADOL) injection 30 mg 12-09 20:00: 00 12-09 19:25 :00 No 30mg 30 mg, Slow IV Push, ONCE, 1 dose, 12/09/20 at 1500, Routine
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 (ECOTRIN) tablet 325 mg 12-09 18:30: 00 12-09 17:57 :00 No 325mg 325 mg, Oral, ONCE, 1 dose, 12/09/20 at 1330, STAT [facility] NaCl 0.9% (NS) bolus infusion 1,000 mL 12-09 17:00: 00 12-09 19:27 :00 No 1000mL at 999 mL/hr, 1,000 mL, IV Infusion, ONCE, 1 dose, 12/09/20 at 1200, JASMEET [facility] traMADoL 50 mg tablet 12-09 00:00: 00 Yes [id number] 50mg Take 1 tablet by mouth every 6 (six) hours as needed for Pain (scale 7-10). Indication s: acute pain [facility] ibuprofen 600 mg tablet 12-09 00:00: 00 Yes [id number] 600mg Take 1 tablet by mouth every 6 (six) hours as needed for Pain (scale 4-6). [facility] Tylenol TABS Tylenol TABS Yes [facility] Naproxen TABS Naproxen TABS Yes [facility] Vital Signs Vital Name Observation Time Observation Value Comments S ource Systolic blood pressure 2023-02-21 04:00:00 118 mm[Hg] [facility] Diastolic blood pressure 2023-02-21 04:00:00 72 mm[Hg] [facility] Heart rate 2023-02-21 04:00:00 85 /min [facility] Respiratory rate 2023-02-21 04:00:00 18 /min [facility] Oxygen saturation in Arterial blood by Pulse oximetry 2023-02-21 04:00:00 100 /min [facility] Body weight 2023-02-21 01:48:00 74.844 kg [facility] BMI 2023-02-21 01:48:00 28.32 kg/m2 [facility] Body temperature 2023-02-21 01:48:00 37.5 [facility] Body height 2023-02-21 01:48:00 162.6 cm [facility] Systolic blood pressure 2021-10-30 17:34:00 138 mm[Hg] [facility] Diastolic blood pressure 2021-10-30 17:34:00 88 mm[Hg] [facility] Heart rate 2021-10-30 17:34:00 76 /[facility] Body temperature 2021-10-30 17:34:00 36.67 [facility] Respiratory rate 2021-10-30 17:34:00 18 /min [facility] Body weight 2021-10-30 17:34:00 74.844 kg [facility] BMI 2021-10-30 17:34:00 28.32 kg/m2 [facility] Oxygen saturation in Arterial blood by Pulse oximetry 2021-10-30 17:34:00 99 /min [facility] Heart rate 2020-12-09 20:30:00 78 /min [facility] temperature 2020-12-09 20:30:00 35.89 [facility] Respiratory rate 2020-12-09 20:30:00 17 /min [facility] Oxygen saturation in Arterial blood by Pulse oximetry 2020-12-09 20:30:00 99 /min [facility] Systolic blood pressure 2020-12-09 20:00:00 106 mm[Hg] [facility] Diastolic blood pressure 2020-12-09 20:00:00 68 mm[Hg] [facility] Body height 2020-12-09 16:47:00 162.6 cm [facility] Body weight 2020-12-09 16:47:00 74.844 kg [facility] BMI 2020-12-09 16:47:00 28.32 kg/m2 [facility] Procedures Procedure Date / Time Performed Performing Clinician Source NOTICE OF PRIVACY PRACTICES 2023-02-21 01:48:02 Doctor Unassigned, [place] [facility] CONSENT/REFUSAL FOR DIAGNOSIS AND TREATMENT 2023-02-21 01:47:00 Doctor Unassigned, [place] [facility] CONSENT/REFUSAL FOR DIAGNOSIS AND TREATMENT 2021-10-30 17:28:32 Doctor Unassigned, [place] [facility] TROPONIN I 2020-12-09 20:28:00 [facility] 2020-12-09 19:27:00 [facility] 1 VW 2020-12-09 17:45:58 Ruma Johnson [facility] TROPONIN I 2020-12-09 17:08:00 Ruma Johnson [facility] HEPATIC FUNCTION PANEL (12975) (ALB,T.PRO,BILI T,BU/BC,ALT,AST,ALK PHOS) 2020-12-09 17:08:00 Ruma Johnson [facility] BASIC METABOLIC PANEL (NA, K, CL, CO2, GLUCOSE, BUN, CREATININE, CA) 2020-12-09 17:08:00 Ruma Johnson [facility] CBC WITH DIFF 2020-12-09 17:08:00 Ruma Johnson [facility] D-DIMER 2020-12-09 17:08:00 Ruma Johnson [facility] N-TERMINAL PRO-BNP 2020-12-09 17:08:00 Brittany Johnson [facility] COVID-19 (ID NOW RAPID TESTING) 2020-12-09 17:08:00 Ruma Johnson [facility] History of Cyst excision [facility] History of Tooth extraction [facility]end[facility] Encounters Start Date/Time End Date/Time Encounter Type Admission Type Attending [facility] Care Facility Care Department Encounter ID Source 2023-02-20 20:52:00 2023-02-20 23:38:00 Emergency X JOSE RAFAEL SALEEM [facility] ERT [id number] [facility] 2023-02-20 20:52:00 2023-02-20 23:38:00 Emergency Jose Rafael Saleem [facility] [id number] [facility] 2021-10-30 12:36:00 2021-10-30 14:06:00 Emergency HARLAN BLANCHARD [facility] ERT [id number] [facility] 2021-10-30 12:36:00 2021-10-30 14:06:00 Emergency Harlan Rea [facility] [id number] [facility] 2020-12-09 11:48:00 2020-12-09 16:46:00 Emergency Ruma Johnson [facility] [id number] [facility] 2020-12-09 11:38:00 2020-12-09 11:38:00 Emergency X [facility] ERT [id number] [facility] 2020-09-20 15:00:00 2020-09-20 15:00:00 LUZMARIA Rausch M.D. KONOPKA, GEOFF, M.D. [facility] [id number] [facility] 2015-10-31 00:00:00 2015-10-31 00:00:00 Outpatient ACCESSHEALT H, PROVIDER [facility] [id number] [facility] 2015-10-31 00:00:00 2015-10-31 00:00:00 Outpatient ACCESSHEALT H, PROVIDER [facility] [id number] [facility] Results Test Description Test Time Test Comments Results Result Co mments Source [facility]2021-[facility] 19:59:36* Test Item Value Reference Range Interpretation Comme nts APPEARANCE (test code = 4929189010) Clear Clear COLOR (test code = 6216079439) Yellow Yellow PH (test code = 8776883352) 4.8-8.0 A SP GRAVITY (test code = 4989437658) 1.003-1.030 GLU U QUAL (test code = 1026705489) Normal Normal BLOOD (test code = 0028967810) Negative Negative KETONES (test code = 1455135191) Negative Negative PROTEIN (test code = 2887-8) Negative Negative UROBILIN (test code = 6626147975) 2.0 mg/dL Normal A BILIRUBIN (test code = 0978663685) Negative Negative NITRITE (test code = 1843347628) Negative Negative LEUK ARELIS (test code = 7027281946) Negative Negative RBC/HPF (test code = 7615159896) See_Comment [Automated [employer]] The system which generated this result transmitted reference range: 0 - 3 HPF. The reference range was not used to interpret this result as normal/abnormal. WBC/HPF (test code = 5229147719) See_Comment [Automated [employer]] The system which generated this result transmitted reference range: 0 - 5 HPF. The reference range was not used to interpret this result as normal/abnormal. BACTERIA (test code = 7719361196) Negative Negative Lab Interpretation (test code = 97080-0) Abnormal [facility] [id number] 18:36:18* Test Item Value Reference Range Interpretation Comme nts NT-proBNP (test code = 8372827404) 22 pg/mL See_Comment [Automated message] The system which generated this result transmitted reference range: <=125. The reference range was not used to interpret this result as normal/abnormal. JAYDON (test code = JAYDON) Biotin has been reported to cause a negative bias, interpret results relative to patient's use of biotin. Lab Interpretation (test code = 83401-2) Normal [facility] 1 [id number] 18:27:42No radiographic evidence of an acute cardiopulmonary process. RL: [id number]: [id number] EXAM: XR CHEST 1 VW ORDERING PROVIDER: [...] EXAM: XR CHEST 1 VWORDERING PROVIDER: RUMA VANGLEHISTORY: cough with fever COMPARISON: none TECHNIQUE: Portable AP radiograph of the chest.FINDINGS: Overlying monitoring leads. There is no focal consolidation,pneumothorax or appreciable pleural effusion.The cardiomediastinalsilhouette is within normal limits. Trachea is midline. No acute osseousabnormality identified.IMPRESSIONNo radiographic evidence of an acute cardiopulmonary process.RL: [id number]:[id number] signed by Simeon Sandoval DO at 12/09/2020 1:27 [facility]UnB[facility] CenterTroponimike I 2020-12-09 18:02:56* Test Item Value Reference Range Interpretation Comme nts TROPONIN I (test code = 3824685661) 0.000 ng/mL See_Comment [Automated message] The system [...] biotin. ? Lab Interpretation (test code = 72201-3) Normal [facility]OVID[facility] (ID NOW RAPID TESTING)2020-12-09 18:01:19* Test Item Value Reference Range Interpretation Comme nts SARS-CoV-2 Rapid ID NOW (test code = 29923-3) Not Detected Not Detected JAYDON (test code = JAYDON) ID NOW COVID-19 As say is an isothermal nucleic acid amplification test intended for the qualitative detection of nucleic acid from SARS-CoV-2 viral RNA in nasopharyngeal (METAL MOLD DRESSER) specimens. It is used under Emergency Use [...] clinically indicated. Lab Interpretation (test code = 73637-1) Normal [facility] Metabolic Panel (NA, K, CL, CO2, GLUCOSE, BUN, CREATININE, CA)2020-12-09 17:52:15* Test Item Value Reference Range Interpretation Comme nts NA (test code = 2201439747) 137 mmol/L 135-145 K (test code = 9988241891) 3.8 mmol/L 3.5-5.0 CL (test code = 8619348375) 103 mmol/L 98-108 CO2 TOTAL (test code = 6084408856) 24 mmol/L 23-31 AGAP (test code = 6753406909) 2-16 BUN (test code = 7196307652) 13 mg/dL 7-23 GLUCOSE (test code = 0883149022) 97 mg/dL 70-110 CREATININE (test code = 7431604130) 0.85 mg/dL 0.60-1.25 CALCIUM (test code = 1271185952) 9.5 mg/dL 8.6-10.6 eGFR (test code = 9045032597) mL/min/1.73m2 JAYDON (test code = JAYDON) Association [...] or urine or abnormalities in imaging tests). [facility] (ALB, T.PRO, BILI T, BU/BC, ALT, AST, ALK PHOS)2020-12-09 17:51:35* Test Item Value Reference Range Interpretation Comme nts TOTAL BILI (test code = 5123494506) 0.6 mg/dL 0.1-1.1 BILI UNCON (test code = 2426696098) 0.5 mg/dL 0.1-1.1 BILI CONJ (test code = 2206746342) 0.0 mg/dL 0.0-0.3 T PROTEIN (test code = 6615521758) 8.2 g/dL 6.3-8.2 ALBUMIN (test code = 3036593183) 4.5 g/dL 3.5-5.0 ALK PHOS (test code = 3303436244) 98 U/L 34-122 ALTv (test code = 1742-6) 61 U/L 5-50 H AST(SGOT) (test code = 0735587494) 40 U/L 13-40 Lab Interpretation (test cod e = 00217-9) Abnormal [facility]icsD-[id number] 17:50:14* Test Item Value Reference Range Interpretation Comments D-DIMER (test code = 7050864942) See_Comment [Automated message] The system which generated [...] a diagnosis. Lab Interpretation (test code = 05462-7) [facility] [id number] 17:38:57* Test Item Value Reference Range Interpretation Comme nts WBC (test code = 6690-2) See_Comment [Automated [employer]] The system which generated this result transmitted reference range: 4.20 - 10.70 10*3/?L. The reference range was not used to interpret this result as normal/abnormal. RBC (test code = 789-8) See_Comment [Automated [employer]] The system which generated this result transmitted [...] 33.9 g/dL 31.2-35.0 RDW-SD (test code = 70228-4) 41.1 fL 38.5-51.6 RDW-CV (test code = 788-0) 13.2 % 12.1-15.4 PLT (test code = 777-3) See_Comment [Automated messa ge] The system which generated this result transmitted reference range: 150 - 328 10*3/?L. The reference range was not used to interpret this result as normal/abnormal. MPV (test code = 39412-2) 8.6 fL 9.8-13.0 L NRBC/100 WBC (test code = 8971173928) See_Comment [Automated Second & Fourth ssage] The system which generated this result transmitted reference range: 0.0 - 10.0 /100 WBCs. The reference range was not used to interpret this result as normal/abnormal. NRBC x10^3 (test code = 8608345641) <0.01 See_Comment [Automated messa ge] The system which generated this result transmitted reference range: 10*3/?L. The reference range was not used to interpret this result as normal/abnormal. GRAN MAT (NEUT) % (test code = 770-8) 63.2 % IMM GRAN % (test code = 2185557777) 0.30 % LYMPH % (test code = 736-9) 23.4 % MONO % (test code = 5905-5) 12.1 % EOS % (test code = 713-8) 0.7 % BASO % (test code = 706-2) 0.3 % GRAN MAT x10^3(ANC) (test code = 5884668595) 4.74 10*3/uL 1.99-6.95 IMM GRAN x10^3 (test code = 3336835362) <0.03 0.00-0.06 LYMPH x10^3 (test code = 731-0) 1.75 10*3/uL 1.09-3.23 MONO x10^3 (test code = 742-7) 0.91 10*3/uL 0.36-1.02 EOS x10^3 (test code = 711-2) 0.05 10*3/uL 0.06-0.53 L BASO x10^3 (test code = 704-7) <0.03 0.01-0.09 Lab Interpretation (test code = 13433-5) Abnormal [facility][U] XRAY HAND MIN 3 VWS RIGHT [id number] 15:05:00Images acquired, not reported on this accession number.[facility] Physicians Notes Date/Time Note Provider Source 2023-02-20 23:32:07 Formatting of this n ote might be different from the original. Pt discharged home . Given all education and information regarding prescriptions; s/s of worsening condition; and follow up importance. Patient verbalized understanding. Vss. Alert and ambulatory to pov with spouse Rosa Yan RN [facility] 2023-02-20 20:48:00 Formatting of this n ote might be different from the original. Patient states: "I was bitten by ant fires on my left foot around 7:30PM tonight and right away rash started all over my body, no SOB but I just feel that my throat is scratchy. I took Vanita 10 minutes after the rashes showed but no relief." [facility]
[2025-03-01] MEDS ORDERED: ONDANSETRON 4 MG/2 ML VIAL ONE ×2 (13:23→17:03)
[2025-03-01] MEDS ORDERED: MORPHINE 4 MG/ML SYR ONE ×2 (13:24→17:03)
[2025-03-01] MEDS ORDERED: ASPIRIN 81 MG CHEWABLE TABLET ONE (13:24)
[2025-03-01] MEDS ORDERED: NA CHLORIDE 0.9% 1,000 ML ONE (13:24)
[2025-03-01 13:42] LABS: Absolute Lymphocytes (CBC) 2.0 K/uL (0.7-4.9); Hematocrit 46.6 % (39.6-49.0); Hemoglobin 15.5 g/dL (13.6-17.9); MCH 28.9 pg (27.0-35.0); MCHC 33.3 g/dL (32.0-36.0); MCV 86.7 fL (80-100); MPV 6.8 fL (7.6-11.3); Nucleated RBC Absolute Count 0.0 (0-0); Nucleated Red Blood Cells % 0.1 % (0-0); RBC Red Blood Cell Count 5.38 M/uL (4.33-5.43); White Blood Count 9.20 thou/uL (4.3-10.9)
[2025-03-01 14:03] LABS: Potassium 3.0 mEq/L (3.5-5.1)
[2025-03-01 14:04] LABS: AST/SGOT 19 U/L (15-37); Anion Gap 8.0 mEq/L (5.0-15.0); BUN Blood Urea Nitrogen 12 mg/dL (7-18); Glucose Level 129 mg/dL (74-106)
[2025-03-01 14:05] LABS: ALT/SGPT 48 U/L (16-61); Albumin 3.8 g/dL (3.4-5.0); Albumin/Globulin Ratio 1.0 (1.1-1.8); Alkaline Phosphatase 88 U/L (45-117); Globulin 4.0 g/dL (2.3-3.5); NT PRO-BNP 8 pg/mL (<125); Troponin High Sensitivity < 3.0 (<58.9)
--- NOTE | 2025-03-01 14:45 | RAD REPORT ---
Procedure: Chest Single View HISTORY: Chest pain COMPARISON: October 2024 FINDINGS: The lungs appear clear of acute infiltrate. No significant pleural effusion noted. The heart is mildly enlarged. IMPRESSION: No acute abnormality is displayed.
--- NOTE | 2025-03-01 14:51 | RAD REPORT ---
EXAMINATION: CTA CHEST PE CLINICAL INDICATION: Chest pain TECHNIQUE: 100 cc 370 Isovue administered intravenously. This examination was performed according to an angiographic protocol with 3D post-processing. This involves 3D reconstructions, MIPs, volume rendered images and/or shaded surface rendering. One or more of the following dose reduction techniqu es were used: Automated exposure control, adjustment of the mA and/or kV according to patient size, and/or iterative reconstruction. Unless otherwise specified, incidental findings do not require dedic ated imaging follow-up. [id number]. COMPARISON: 2022 FINDINGS: A pulmonary embolus is not seen. An aortic aneurysm not noted. No pleural effusion. No pericardial effusion. Lungs are clear. IMPRESSION: No evidence of a pulmonary embolism
--- NOTE | 2025-03-01 16:51 | EDPHYS ---
Physician Documentation [facility] Name: Pepe Chen Age: 39 yrs Sex: Male : 1985 Arrival Date: 03/01/2025 Time: 12:54 Bed 14 Private MD: ED Physician Dave Shook HPI: 03/01 20:07 This 39 yrs old Male presents to ER via Ambulatory with complaints of dr5 Breathing Difficulty. 20:07 Onset: The symptoms/episode began/occurred 2 day(s) ago. Patient is a 39 male with no dr5 past medical history coming in with left upper back pain as well as left chest pain. Patient reports has been going for 2 days. Patient denies any heavy lifting or trauma.. Historical: - Allergies: 13:09 Benadryl; iw - PMHx: 13:09 cardiomegaly; iw - PSHx: 13:09 Appendectomy; iw - Immunization history:: Adult Immunizations up to date. - Infectious Disease History:: Denies. - Social history:: Smoking status: Reported history of juuling and/or vaping. ROS: 20:10 Constitutional: as per hpi dr5 Exam: 20:10 Constitutional: This is a well developed, well nourished patient who is awake, alert, dr5 and in no acute distress. Head/Face: Normocephalic, atraumatic. Eyes: Pupils equal round and reactive to light, extra-ocular motions intact. Lids and lashes normal. Conjunctiva and sclera are non-icteric and not injected. Cornea within normal limits. Periorbital areas with no swelling, redness, or edema. Neck: Trachea midline, no thyromegaly or masses palpated, and no cervical lymphadenopathy. Supple, full range of motion without nuchal rigidity, or vertebral point tenderness. No Meningismus. Chest/axilla: Normal chest wall appearance and motion. Nontender with no deformity. No lesions are appreciated. Cardiovascular: Tachycardic rate and rhythm with a normal S1 and S2. Normal PMI, no JVD. No pulse deficits. Respiratory: Lungs have equal breath sounds bilaterally, clear to auscultation. No rales, rhonchi or wheezes noted. No increased work of breathing, no retractions or nasal flaring. Abdomen/GI: Soft, non-tender, non-distended Back: No spinal tenderness. No costovertebral tenderness. Full range of motion. Tenderness to palpation of left upper back and right upper chest. Skin: Warm, dry with normal turgor. Normal color with no rashes, no lesions, and no evidence of cellulitis. MS/ Extremity: Pulses equal, no cyanosis. Neurovascular intact. Full, normal range of motion. Neuro: Awake and alert, GCS 15, oriented to person, place, time, and situation. Cranial nerves II-XII grossly intact. Motor strength 5/5 in all extremities. Sensory grossly intact. Cerebellar exam normal. Normal gait. Vital Signs: 13:08 BP 152 / 96; Pulse 120; Resp 19; Pulse Ox 100% on R/A; Weight 74.84 kg; Height 5 ft. 4 iw in. ; 13:30 BP 160 / 97; Pulse 120; Resp 15; Pulse Ox 100% on R/A; me1 14:30 BP 118 / 63; Pulse 86; Resp 16; Pulse Ox 100% ; me1 15:30 BP 118 / 72; Pulse 79; Resp 13; Pulse Ox 100% ; me1 16:30 BP 107 / 71; Pulse 67; Resp 14; Pulse Ox 100% ; me1 17:10 BP 111 / 68; Pulse 68; Resp 16; Temp 98.2; Pulse Ox 100% ; me1 13:08 Body Mass Index 28.32 (74.84 kg, 162.56 cm) iw MDM: 12:56 Medical Screening Exam initiated dr5 20:10 Differential diagnosis: Anemia Bronchitis pneumonia, Pulmonary Embolism Muscle spasm. dr5 Antibiotic administration: Not indicated, the patient does not have an appreciated infiltrate. Data interpreted: awake overnight monitor: rate is 68 beats/min, rhythm is normal sinus rhythm, regular, with no ectopy, Interpretation: normal rate, normal rhythm. Data reviewed: vital signs, nurses notes, lab test result(s), cardiac enzymes, troponin i, CBC, white blood cell count, hemoglobin, hematocrit, platelets, electrolytes, sodium, potassium, chloride, serum bicarbonate, BUN, creatinine, serum glucose, EKG, radiologic studies, CT scan, plain films. Consideration of Admission/Observation Escalation of care including admission/observation considered. Admission considered patient found to have elevated troponin or EKG changes. I considered the following discharge prescriptions or medication management in the emergency department I discussed and recommended Over The Counter medications, Medications were administered in the Emergency Department. See SIMEON. Independent interpretation of the following test(s) in the Emergency Department X-Ray: My interpretation is And if interpretation of x-ray does not reveal pneumonia. Care significantly affected by the following chronic conditions:. Care significantly affected by the following Social Determinants of Health: Poor access to healthcare and/or lack of insurance, Poor access to transportation, Problems related to employment. Counseling: I had a detailed discussion with the patient and/or guardian regarding the historical points, exam findings, and any diagnostic results supporting the discharge/admit diagnosis, the presence of at least one elevated blood pressure reading (>120/80) during this emergency department visit, lab results, radiology results, the need for outpatient follow up, for definitive care, a family practitioner. Medication response: morphine relieved the patient's pain. Symptoms have resolved, Zofran relieved the patient's nausea. Aspirin. Response to treatment: the patient's symptoms have resolved after treatment, the patient's condition has returned to base line, the patient is now symptom free. Special discussion: I have referred the patient to see his PCP for further evaluation of high blood pressure. I discussed with the patient/guardian in detail that at this point there is no indication for admission to the hospital. It is understood, however, that if the symptoms persist or worsen the patient needs to return immediately for re-evaluation. Based on the history and exam findings, there is no indication for further emergent testing or inpatient evaluation. I discussed with the patient/guardian the need to see the primary care provider for further evaluation of the symptoms. ED course: Patient reports his pain has resolved and felt much better. Will give patient medication for muscle spasms. All questions answered. Strict ER precautions given. Negative workup for PE or cardiac abnormality. 03/01 13:12 Order name: CBC with Diff; Complete Time: 13:45 03/01 13:12 Order name: NT PRO-BNP; Complete Time: 14:06 03/01 13:12 Order name: Troponin HS; Complete Time: 14:03/01 13:12 Order name: CMP; Complete Time: 14:03/01 13:12 Order name: XRAY Chest (1 view); Complete Time: 14:57 03/01 13:12 Order name: CT Chest For PE Angio; Complete Time: 14:57 03/01 13:12 Order name: Cardiac monitoring; Complete Time: : dr5 03/01 13:12 Order name: EKG - Nurse/Tech; Complete Time: dr5 03/01 13:12 Order name: IV Saline Lock; Complete Time: dr5 03/01 13:12 Order name: Labs collected and sent; Complete Time: dr5 03/01 13:12 Order name: O2 Per Protocol; Complete Time: dr5 03/01 13:12 Order name: O2 Sat Monitoring; Complete Time: dr5 EC:21 Rate is 120 beats/min. Rhythm is regular. QRS [place] is Normal. [place] interval is normal at dr5 170 msec. QRS interval is normal at 100 msec. QT interval is normal at 298 msec. Clinical impression: Normal ECG, Sinus tachycardia, and No evidence of ischemia. Administered Medications: 13:33 Drug: Aspirin PO Chewable Tablet 324 mg PO once; 81 mg tablets x 4 Route: PO; me1 14:42 Follow up: Response: No adverse reaction me1 13:33 Drug: morphine IVP or IV 4 mg IVP once over 4 mins Route: IVP; Infused Over: 4 mins; me1 Site: right antecubital; 14:42 Follow up: Response: No adverse reaction; Pain is decreased me1 13:33 Drug: Ondansetron IVP 4 mg IVP once; over 2 minutes Route: IVP; Site: right antecubital;me1 14:41 Follow up: Response: No adverse reaction; Nausea is decreased me1 13:33 Drug: NS 0.9% IV 1000 ml IV at 1000 ml once; to be given as a bolus over 60 minutes me1 Route: IV; Rate: 1000 ml; Site: right antecubital; 16:11 Follow up: Response: No adverse reaction; IV Status: Completed infusion; IV Intake: me1 1000ml 17:08 Drug: morphine IVP or IV 4 mg IVP once over 4 mins Route: IVP; Infused Over: 4 mins; me1 Site: right antecubital; 17:09 Follow up: Response: No adverse reaction; Pain is decreased me1 17:09 Drug: Ondansetron IVP 4 mg IVP once; over 2 minutes Route: IVP; Site: right antecubital;me1 17:09 Follow up: Response: No adverse reaction; Nausea is decreased me1 17:09 Drug: Dexamethasone IVP 10 mg IVP once; (not to exceed 40 mg) Route: IVP; Site: right me1 antecubital; 17:09 Follow up: Response: No adverse reaction me1 Disposition Summary: 03/01/25 16:51 Discharge Ordered Notes: Location: Home dr5 Condition: Stable dr5 Diagnosis - Muscle spasm of back dr5 Followup: dr5 - With: Emergency Department - When: As needed - Reason: Worsening of condition Followup: dr5 - With: Private Physician - When: 1 - 2 days - Reason: Recheck today's complaints, Continuance of care, Re-evaluation by your physician Discharge Instructions: - Discharge Summary Sheet dr5 - Muscle Cramps and Spasms, [id number] dr5 Forms: - Work release form dr5 - Medication Reconciliation Form dr5 - Patient Portal Instructions dr5 - Leadership Thank You Letter dr5 Prescriptions: - Ibuprofen 800 mg Oral Tablet - take 1 tablet ORAL route every 12 hours As needed take with food; 20 tablet; dr5 Refills: 0, Product Selection Permitted - Cyclobenzaprine 10 mg Oral Tablet - take 1 tablet ORAL route every 8 hours As needed; 30 tablet; Refills: 0, dr5 Product Selection Permitted - Medrol (Inocente) 4 mg Oral Tablets, Dose Pack - take 1 tablet ORAL route as directed - follow package instructions; 1 packet; dr5 Refills: 0, Product Selection Permitted Signatures: Dispatcher [employer] EDHeidy Alejo, TATO GODWIN iw Rhea Marrufo RN RN me1 Jun Cool, TIMBER ESTIMATOR-C TIMBER ESTIMATOR-Cdr5 Corrections: (The following items were deleted from the chart) 13:13 13:13 CBC+H.LAB.BRZ ordered. EDMS EDMS 13:13 13:13 PROBNP+C.LAB.BRZ ordered. EDMS EDMS 13:13 13:13 Troponin High Sensitivity+C.LAB.BRZ ordered. EDMS EDMS 13:13 13:13 COMPREHENSIVE METABOLIC PANEL+C.LAB.BRZ ordered. EDMS EDMS 13:13 13:13 Chest Single View+RAD.RAD.BRZ ordered. EDMS EDMS 13:13 13:13 Chest For PE Angio+CT.RAD.BRZ ordered. EDMS EDMS
--- NOTE | 2025-03-01 16:51 | ER ---
Nurse's Notes [facility] Name: Pepe Chen Age: 39 yrs Sex: Male : 1985 Arrival Date: 03/01/2025 Time: 12:54 Bed 14 Private MD: Diagnosis: Muscle spasm of back Presentation: 03/01 13:08 Chief complaint: Patient states: SOB , pain with breathing X 2 days, pain to left iw shoulder and anterior chest. Coronavirus screen: At this time, the client does not indicate any symptoms associated with coronavirus-19. Ebola Screen: No symptoms or risks identified at this time. Risk Assessment: Do you want to hurt yourself or someone else? Patient reports no desire to harm self or others. 13:08 Method Of Arrival: Ambulatory iw 13:09 Initial Sepsis Screen: Does the patient meet any 2 criteria? HR > 90 bpm. Does the iw patient have a suspected source of infection? No. Patient's initial sepsis screen is negative. Onset of symptoms was February 27, 2025. 13:09 Acuity: RIMA 2 iw Triage Assessment: 17:10 Respiratory: the patient has mild shortness of breath. me1 Historical: - Allergies: 13:09 Benadryl; iw - PMHx: 13:09 cardiomegaly; iw - PSHx: 13:09 Appendectomy; iw - Immunization history:: Adult Immunizations up to date. - Infectious Disease History:: Denies. - Social history:: Smoking status: Reported history of juuling and/or vaping. Screenin:18 [facility] ED Fall Risk Assessment (Adult) History of falling in the last 3 months, me1 including since admission No falls in past 3 months (0 pts) Confusion or Disorientation No (0 pts) Intoxicated or Sedated No (0 pts) Impaired Gait No (0 pts) Mobility Assist Device Used No (0 pt) Altered Elimination No (0 pt) Score/Fall Risk Level 0 - 2 = Low Risk Maintained a safe environment, Provided non-skid footwear, Hourly rounding (assess needs \\T\\ fall precautionary measures) done. Abuse screen: Denies threats or abuse. Nutritional screening: No deficits noted. Tuberculosis screening: No symptoms or risk factors identified. Assessment: 13:18 General: Appears in no apparent distress. well groomed, well developed, well nourished, me1 Behavior is calm, cooperative, appropriate for age, Reports SOB , pain with breathing X 2 days, pain to left shoulder and anterior chest. Pain: Complains of pain in chest Pain does not radiate. Pain currently is 3 out of 10 on a pain scale. at worst was 10 out of 10 on a pain scale. Quality of pain is described as shooting, stabbing, Pain began 2-3 days ago. Is intermittent, Aggravated by deep breath. Neuro: Level of Consciousness is awake, alert, obeys commands, Oriented to person, place, time, situation, Appropriate for age. Cardiovascular: Reports chest pain, shortness of breath, since 2 days ago Patient's skin is warm and dry. Rhythm is regular. Respiratory: Reports shortness of breath pain with respiration since 2 days ago Pain is 3 out of 10 on a pain scale. at rest 3/10, with deep breath pain increases to 10/10 "stabbing, shooting" to L upper back. Airway is patent Respiratory effort is even, unlabored, Respiratory pattern is regular, symmetrical, Breath sounds are clear bilaterally. GI: No signs and/or symptoms were reported involving the gastrointestinal system. : No signs and/or symptoms were reported regarding the genitourinary system. EENT: No signs and/or symptoms were reported regarding the EENT system. Derm: Skin is intact, is healthy with good turgor, Skin is normal. Musculoskeletal: No signs and/or symptoms reported regarding the musculoskeletal system. Vital Signs: 13:08 BP 152 / 96; Pulse 120; Resp 19; Pulse Ox 100% on R/A; Weight 74.84 kg; Height 5 ft. 4 iw in. ; 13:30 BP 160 / 97; Pulse 120; Resp 15; Pulse Ox 100% on R/A; me1 14:30 BP 118 / 63; Pulse 86; Resp 16; Pulse Ox 100% ; me1 15:30 BP 118 / 72; Pulse 79; Resp 13; Pulse Ox 100% ; me1 16:30 BP 107 / 71; Pulse 67; Resp 14; Pulse Ox 100% ; me1 17:10 BP 111 / 68; Pulse 68; Resp 16; Temp 98.2; Pulse Ox 100% ; me1 13:08 Body Mass Index 28.32 (74.84 kg, 162.56 cm) iw ED Course: 12:56 Patient arrived in ED. mr 12:56 True Coolin, AGING ROOM OPERATOR-C [facility]. [facility]5 12:56 Dave Shook MD is Attending Physician. dr5 13:09 Triage completed. iw 13:09 Arm band placed on. iw 13:17 Rhea Marrufo, RN is Primary Nurse. me1 13:18 Patient has correct armband on for positive identification. Bed in low position. Call me1 light in reach. Side rails up X2. Provided Education on: POC. Verbalized understanding.. Client placed on continuous cardiac and pulse oximetry monitoring. NIBP monitoring applied. clinical research management associate on. Pulse ox on. NIBP on. 13:18 No provider procedures requiring assistance completed. me1 13:27 CBC with Diff Sent. bc6 13:27 NT PRO-BNP Sent. 6 13:27 Troponin HS Sent. 6 13:27 Initial lab(s) drawn, by me, sent to lab. EKG done, by ED staff, reviewed by Jun EID. Inserted saline lock: 20 gauge in right antecubital area, using aseptic technique. Blood collected. Flushed with 10 mL NS. 14:03 XRAY Chest (1 view) In Process Unspecified. EDMS 14:12 CT Chest For PE Angio In Process Unspecified. EDMS 17:15 IV discontinued, intact, bleeding controlled, No redness/swelling at site. Pressure me1 dressing applied. Administered Medications: 13:33 Drug: Aspirin PO Chewable Tablet 324 mg PO once; 81 mg tablets x 4 Route: PO; me1 14:42 Follow up: Response: No adverse reaction me1 13:33 Drug: morphine IVP or IV 4 mg IVP once over 4 mins Route: IVP; Infused Over: 4 mins; me1 Site: right antecubital; 14:42 Follow up: Response: No adverse reaction; Pain is decreased me1 13:33 Drug: Ondansetron IVP 4 mg IVP once; over 2 minutes Route: IVP; Site: right antecubital;me1 14:41 Follow up: Response: No adverse reaction; Nausea is decreased me1 13:33 Drug: NS 0.9% IV 1000 ml IV at 1000 ml once; to be given as a bolus over 60 minutes me1 Route: IV; Rate: 1000 ml; Site: right antecubital; 16:11 Follow up: Response: No adverse reaction; IV Status: Completed infusion; IV Intake: me1 1000ml 17:08 Drug: morphine IVP or IV 4 mg IVP once over 4 mins Route: IVP; Infused Over: 4 mins; me1 Site: right antecubital; 17:09 Follow up: Response: No adverse reaction; Pain is decreased me1 17:09 Drug: Ondansetron IVP 4 mg IVP once; over 2 minutes Route: IVP; Site: right antecubital;me1 17:09 Follow up: Response: No adverse reaction; Nausea is decreased me1 17:09 Drug: Dexamethasone IVP 10 mg IVP once; (not to exceed 40 mg) Route: IVP; Site: right me1 antecubital; 17:09 Follow up: Response: No adverse reaction me1 Medication: 13:18 VIS not applicable for this client. me1 Intake: 16:11 IV: 1000ml; Total: 1000ml. me1 Outcome: 16:51 Discharge ordered by MD. shy 17:15 Discharged to home via wheelchair, with significant other, me1 17:15 Condition: stable 17:15 Discharge instructions given to patient, significant other, Instructed on discharge instructions, follow up and referral plans. medication usage, Demonstrated understanding of instructions, follow-up care, medications, Prescriptions given X 3, 17:18 Patient left the ED. me1 Signatures: Dispatcher [employer] EDNJ Deborah Donaldson, Reg Reg mr Heidy Rodriguez, RN RN iw Kassandra Enriquez6 Rhea Marrufo RN RN me1 Jun Cool, AGING ROOM OPERATOR-C AGING ROOM OPERATOR-Cdr5 Corrections: (The following items were deleted from the chart) 13:17 13:08 Chief complaint: Patient states: SOB , pain with breathing X 2 days, pain to left me1 shoulder and anterior chest iw
[2025-03-01 20:55] VITALS: O2SAT 100
[2025-03-01 21:07] VITALS: BP 111/68; TEMP 98.2
== END 2025-03-01 17:18 | disposition home or self-care (01) ==
LOC: ER 12:54
DX: M62.830 Muscle spasm of back (principal)
CPT/HCPCS: 36415; 71045; 71275; 80053; 83880; 84484; 85025; 93005; J1100; J2405; J7030; Q9967